=== PATIENT | female | born 1935 | race Two or more races ===

== ENCOUNTER 2017-10-20 16:45 | Inpatient (IN) | payer MEDICARE ==
[2017-10-20] MEDS ORDERED: SODIUM CHLORIDE 0.9% 1,000 ML IV STA (18:26)
--- NOTE | 2017-10-20 18:32 | ED ---
General Adult HPI - General Chief complaint: Abdominal Pain Stated complaint: ABd pain Time Seen by Provider: 10/20/17 16:45 Source: patient, RN notes reviewed Mode of arrival: EMS Limitations: no limitations - History of Present Illness Initial comments: This is a 82-year-old female with a history of depression and COPD who was transferred from [facility] to [facility] due to constipation. She was found have a large amount of stool mostly in the rectal vault and lower colon. The initial thought was that she needed to be observed in the hospital due to the constipation. She did demonstrate evidence of dehydration also reactive leukocytosis. Imaging showed no acute findings other than the stool. Imaging showed moderate amount of stool within the rectum with mild perirectal inflammation seen the patient findings were related to a possible stercoral colitis. Patient feeling did have a large bowel movement. Patient herself is a poor historian. She still complains of slight amount of abdominal discomfort - Related Data Home Medications Medication Instructions Recorded Confirmed Acetaminophen Tab [Tylenol Tab] 500 mg PO Q6HR PRN 10/20/17 10/20/17 Allopurinol [Zyloprim] 300 mg PO BID 10/20/17 10/20/17 Citalopram Hydrobromide [CeleXA] 20 mg PO DIRECTED 10/20/17 10/20/17 Diclofenac Sodium [Diclofenac 100 mg PO DAILY@1700 10/20/17 10/20/17 Sodium ER] Ferrous Sulfate [Iron] 325 mg PO BID@0900,1700 10/20/17 10/20/17 Isosorbide Mononitrate ER [Imdur] 30 mg PO DAILY@0900 10/20/17 10/20/17 Meclizine [Antivert] 50 mg PO TID 10/20/17 10/20/17 Nuedexta 20-10mg 1 tab PO DIRECTED 10/20/17 10/20/17 Rivaroxaban [Xarelto] 20 mg PO HS@1700 10/20/17 10/20/17 Sucralfate [Carafate] 1 gm PO BID@0900,1700 10/20/17 10/20/17 traMADol HCL [Ultram] 50 mg PO TID PRN 10/20/17 10/20/17 Allergies Allergy/AdvReac Type Severity Reaction Status Date / Time codeine Allergy Rash/Hives Verified 10/20/17 17:37 Sulfa (Sulfonamide Allergy Rash/Hives Verified 10/20/17 17:37 Antibiotics) cholestyramine AdvReac Confusion Verified 10/20/17 19:55 [From Questran] dicyclomine [From Bentyl] AdvReac Diarrhea Verified 10/20/17 19:55 sucrose [From Questran] AdvReac Confusion Verified 10/20/17 19:55 steroids Allergy Rash/Hives Uncoded 10/20/17 19:56 Review of Systems ROS Statement: Those systems with pertinent positive or pertinent negative responses have been documented in the HPI. ROS Other: All systems not noted in ROS Statement are negative. Past Medical History Past Medical History: COPD, CVA/TIA, Hyperlipidemia History of Any Multi-Drug Resistant Organisms: None Reported Past Surgical History: Ablation Additional Past Surgical History / Comment(s): cardiac ablation Past Psychological History: No Psychological Hx Reported Smoking Status: Never smoker Past Alcohol Use History: None Reported Past Drug Use History: None Reported General Exam - General Exam Comments Initial Comments: This a well-developed sec appearing female Limitations: no limitations General appearance: alert Head exam: Present: atraumatic, normocephalic, normal inspection Eye exam: Present: normal appearance, PERRL, EOMI. Absent: scleral icterus, conjunctival injection, periorbital swelling ENT exam: Present: mucous membranes dry Neck exam: Present: normal inspection. Absent: tenderness, meningismus, lymphadenopathy Respiratory exam: Present: normal lung sounds bilaterally. Absent: respiratory distress, wheezes, rales, rhonchi, stridor Cardiovascular Exam: Present: regular rate, normal rhythm, normal heart sounds. Absent: systolic murmur, diastolic murmur, rubs, gallop, clicks GI/Abdominal exam: Present: soft, tenderness (I'll tenderness palpation no guarding no rebound masses or bruits), normal bowel sounds. Absent: distended, guarding, rebound, rigid Rectal exam: Present: deferred Extremities exam: Present: normal inspection, full ROM, normal capillary refill. Absent: tenderness, pedal edema, joint swelling, calf tenderness Back exam: Present: normal inspection Neurological exam: Present: alert, oriented X3, CN II-XII intact Psychiatric exam: Present: normal mood, flat affect Skin exam: Present: warm, dry, intact, normal color. Absent: rash Course Vital Signs 10/20/17 16:50 Temperature 98.2 F Pulse Rate 95 Respiratory 16 Rate Blood Pressure 108/60 O2 Sat by Pulse 99 Oximetry - Reevaluation(s) Reevaluation #1: 10/20/17 18:32 I did review the materials presented from [facility]. The patient's family doctor is from this facility additionally there are insurance issues with admission at [facility] which are noted issue here. Reevaluation #2: 10/20/17 20:07 Patient did have another bowel movement she still has lower abdominal pain. I discussed the findings with patient family as well as with Dr. Lopez. Patient will be admitted for continued IV hydration liquids and surgical consultation Disposition Clinical Impression: Abdominal pain, Constipation, Colitis, Dehydration, Leukocytosis Disposition: ADMITTED IP TO THIS HOSP Condition: Stable Referrals: Ruel Campa DO [Primary Care Provider] - 1-2 days
[2017-10-20] MEDS ORDERED: NALOXONE 0.4 MG/ML 1 ML VIAL IV PRN (20:11)
[2017-10-20] MEDS ORDERED: traMADol 50 MG TAB PO PRN (20:16)
[2017-10-20] MEDS ORDERED: ALPRAZolam 0.25 MG TAB PO PRN (20:16)
[2017-10-20] MEDS ORDERED: amLODIPine 5 MG TAB PO PRN (20:16)
[2017-10-20] MEDS: SODIUM CHLORIDE 0.9% 1,000 ML IV SCH (21:02)
[2017-10-20 23:08] VITALS: BMI 28.2
[2017-10-20] MEDS: MECLIZINE 25 MG TAB PO SCH (23:23)
[2017-10-20] MEDS: ALLOPURINOL 300 MG TAB PO SCH (23:23)
--- NOTE | 2017-10-21 07:13 | XR ---
EXAMINATION TYPE: XR abdomen 2V DATE OF EXAM: 10/21/2017 6:46 AM CLINICAL HISTORY: Abdominal pain. Progress exam. TECHNIQUE: Upright and supine images of the abdomen were obtained. COMPARISON: Outside CT dated 10/20/2017 FINDINGS: Gaseous colonic distention is upper limits of normal measuring up to 6.0 cm. Appropriate ramos ustral markings are seen. Air is noted within the descending colon. Rectum is obscured by collected c ontrast within the urinary bladder from the recent CT. No differential air-fluid levels within dilate d bowel in the upright image. No evidence of pneumoperitoneum. Extensive degenerative changes of the visualized thoracolumbar spine and femoral acetabular joints are present. The lung bases are without focal consolidation. IMPRESSION: Gaseous colonic distention is upper limits of normal suggesting colonic ileus. Rectum is obscured by intravenous contrast within the urinary bladder.
[2017-10-21 08:29] LABS: Anisocytosis Slight; Basophils % (A) 0 %; Eosinophils # (A) 0.1 k/uL (0-0.7); Eosinophils % (A) 1 %; HCT 32.1 % (34.0-46.0); HGB 9.5 gm/dL (11.4-16.0); Hypochromasia Marked; Lymphocytes # (A) 1.4 k/uL (1.0-4.8); Lymphocytes % (A) 14 %; MCH 22.7 pg (25.0-35.0); MCHC 29.5 g/dL (31.0-37.0); Mean Platelet Volume 6.7; Microcytosis Slight; Monocytes # (A) 0.5 k/uL (0-1.0); Monocytes % (A) 5 %; Neutrophils # (A) 7.6 k/uL (1.3-7.7); Neutrophils % (A) 78 %; Platelet Count 682 k/uL (150-450); RBC 4.18 m/uL (3.80-5.40); WBC 9.7 k/uL (3.8-10.6)
[2017-10-21] MEDS: IPRATROPIUM 0.5 MG/2.5 ML NEBU INHALATION SCH ×4 (08:30→19:42)
[2017-10-21] MEDS ORDERED: ALPRAZolam 0.5 MG TAB PO SCH (09:00)
[2017-10-21] MEDS ORDERED: NEUDEXTA PO SCH (09:00)
[2017-10-21] MEDS ORDERED: PANTOPRAZOLE 40 MG TABLET PO SCH (09:00)
--- NOTE | 2017-10-21 10:13 | P.GSCN ---
History of Present Illness Consult date: 10/21/17 Reason for Consult: Abdominal pain History of present illness: 82-year-old female presented on October 20 as a transfer from [facility] were patient was being evaluated for abdominal pain constipation. Given the above clinical presentation a surgical eval has been requested. Patient apparently has a history of depression was transferred initially from [facility] to [facility] Patient is a poor historian difficult to adequately get health history from patient health history has been obtained from reviewing medical records from [facility] patient's transfer according to the case management manager was for insurance issues apparently her insurance does not cover being a patient at [facility] necessitating a transfer to [facility]. Questioning patient about past surgical history patient states she doesn't have any past surgical history with prompting and reorienting patient states she's had an appendectomy, cholecystectomy, back surgery hysterectomy. Patient does have a well-healed surgical scar right lower quadrant. When questioning patient is to the events patient is stating I don't know why I am here is oriented to self only "I'm here for the acting lessons" patient was admitted at [facility] psychiatric unit for dementia with behavior disturbance Currently patient is denying any abdominal pain no nausea no vomiting. A CAT scan obtained of the abdomen and pelvis with contrast on the at [facility] in summary did report indicated that there was a moderate amount of stool noted within the rectum with mild perirectal inflammatory changes findings may relate to colitis. No evidence of a bowel obstruction. Moderate size hiatal hernia. And mild apparent wall thickening on the anterior wall of the bladder. The abdominal x-ray obtained this morning reviewing the report gaseous colon distention the upper limits of normal suggesting colonic ileus rectum is obscured by IV contrast within the urinary bladder. From a recent IV contrast given the day before Nursing indicates the patient has been incontinent of urine and has had 3 stools incontinently Review of Systems Not able to adequately obtain no recall Past Medical History Past Medical History: Atrial Fibrillation, Heart Failure, COPD, CVA/TIA, Dementia, Hyperlipidemia Additional Past Medical History / Comment(s): iron deficiency anemia; arthritis ; ibs; artherosclerotic heart disease History of Any Multi-Drug Resistant Organisms: None Reported Past Surgical History: Ablation, Appendectomy, Cholecystectomy, Hysterectomy, Tonsillectomy Additional Past Surgical History / Comment(s): cardiac ablation Past Anesthesia/Blood Transfusion Reactions: No Reported Reaction Past Psychological History: Depression Additional Psychological History / Comment(s): recent admission to [facility] for pyschosis Smoking Status: Never smoker Past Alcohol Use History: None Reported Past Drug Use History: None Reported - Past Family History Son(s) Family Medical History: No Reported History Additional Family Medical History / Comment(s): recently passed within last year Medications and Allergies Home Medications Medication Instructions Recorded Confirmed Type ALPRAZolam [Xanax] 0.25 - 0.5 mg PO HS PRN 10/20/17 10/20/17 History ALPRAZolam [Xanax] 0.5 mg PO DAILY 10/20/17 10/20/17 History Acetaminophen Tab [Tylenol Tab] 500 mg PO Q6HR PRN 10/20/17 10/20/17 History Allopurinol [Zyloprim] 300 mg PO BID 10/20/17 10/20/17 History Citalopram Hydrobromide [CeleXA] 20 mg PO DIRECTED 10/20/17 10/20/17 History Diclofenac Sodium [Diclofenac 100 mg PO DAILY@1700 10/20/17 10/20/17 History Sodium ER] Estradiol 0.05MG/24Hr Biwkptch 1 patch TRANSDERM Q84H 10/20/17 10/20/17 History [Vivelle-Dot 0.05 MG] Ferrous Sulfate [Iron] 325 mg PO BID@0900,1700 10/20/17 10/20/17 History Isosorbide Mononitrate ER [Imdur] 30 mg PO DAILY@0900 10/20/17 10/20/17 History Meclizine [Antivert] 50 mg PO TID 10/20/17 10/20/17 History Nuedexta 20-10mg 1 tab PO DIRECTED 10/20/17 10/20/17 History Omeprazole 20 mg PO BID@0900,1700 10/20/17 10/20/17 History Rivaroxaban [Xarelto] 20 mg PO HS@1700 10/20/17 10/20/17 History Sucralfate [Carafate] 1 gm PO BID@0900,1700 10/20/17 10/20/17 History Tiotropium 18 Mcg/Puff [Spiriva] 1 cap INHALATION RT-DAILY 10/20/17 10/20/17 History amLODIPine [Norvasc] 5 mg PO DAILY PRN 10/20/17 10/20/17 History traMADol HCL [Ultram] 50 mg PO TID PRN 10/20/17 10/20/17 History Allergies Allergy/AdvReac Type Severity Reaction Status Date / Time codeine Allergy Rash/Hives Verified 10/20/17 17:37 Sulfa (Sulfonamide Allergy Rash/Hives Verified 10/20/17 17:37 Antibiotics) cholestyramine AdvReac Confusion Verified 10/20/17 19:55 [From Questran] dicyclomine [From Bentyl] AdvReac Diarrhea Verified 10/20/17 19:55 sucrose [From Questran] AdvReac Confusion Verified 10/20/17 19:55 steroids Allergy Rash/Hives Uncoded 10/20/17 19:56 Surgical - Exam Vital Signs Temp Pulse Resp BP Pulse Ox 98.2 F 95 16 108/60 99 10/20/17 16:50 10/20/17 16:50 10/20/17 16:50 10/20/17 16:50 10/20/17 16:50 GENERAL APPEARANCE: The patient is alert, oriented oriented to self only no acute distress. Cooperative VITAL SIGNS: Reviewed HEENT: Head is normocephalic and atraumatic. Pupils are equal and reactive. The nares are patent. Oropharynx is clear without lesions. NECK: Supple without lymphadenopathy. Traches midline. HEART: S1, S2. Regular rate and rhythm. No murmur noted denying chest pain when questioning LUNGS: No crackles or wheezes are heard. Adequate air movement bilaterally on room air sats are 95% no cough noted ABDOMEN: Soft, nontender, nondistended with good bowel sounds. No peritoneal signs. No palpable organomegaly or masses. A well-healed surgical scar right lower quadrant no facial grimacing with palpitation to the abdominal wall nursing reports the patient has been incontinent 3 of stool currently a depends in place for urinary incontinence patient refused to have a rectal exam done EXTREMITIES: Right heel ulcerative area noted dressing in place. Radial pedal pulses are 2/4 bilaterally. No pedal edema moves all extremities appropriately Results - Labs 10/21/17 07:45 Abnormal Lab Results - Last 24 Hours (Table) 10/21/17 Range/Units 07:45 Hgb 9.5 L (11.4-16.0) gm/dL Hct 32.1 L (34.0-46.0) % MCV 77.0 L (80.0-100.0) fL MCH 22.7 L (25.0-35.0) pg MCHC 29.5 L (31.0-37.0) g/dL RDW 17.0 H (11.5-15.5) % Plt Count 682 H (150-450) k/uL Assessment and Plan Assessment: Impression Present on admission abdominal pain suspect due to constipation CAT scan abdomen pelvis with contrast on October 20 moderate amount of stool within the rectum no evidence of a bowel obstruction findings may relate to colitis Dementia with delusional behavior History of iron deficiency anemia Recent admission to [facility] for depression and delusional behavior History of paroxysmal atrial fibrillation status post cardiac ablation on Xarelto Computed tomography scan abdomen pelvis with contrast show no evidence of diverticulitis diverticulosis noted plan No evidence of an acute surgical abdomen at this time Bowel regime to be initiated send stool for C. diff if appropriate PT OT eval Home medication as appropriate IV fluid for hydration Will follow with you with further recommendations per clinical course Surgical consultation note dictated for dr chavez The above impression and plan of care have been discussed and directed by signing physician. Nithya Foley nurse practitioner acting as scribe for signing physician.
[2017-10-21] MEDS: ESTRADIOL 0.05 MG TRANSDERM SCH (10:17)
[2017-10-21] MEDS: FERROUS SULFATE 325 MG TAB PO SCH ×2 (10:29→18:04)
[2017-10-21] MEDS: ISOSORBIDE MONONITRATE ER 30 MG TAB.ER.24H PO SCH (10:29)
[2017-10-21] MEDS: ALLOPURINOL 300 MG TAB PO SCH ×2 (10:29→20:08)
[2017-10-21] MEDS: MECLIZINE 25 MG TAB PO SCH ×2 (10:29→18:42)
[2017-10-21] MEDS: CITALOPRAM HYDROBROMIDE 20 MG TAB PO SCH (10:29)
[2017-10-21] MEDS: PANTOPRAZOLE 40 MG/10 ML VIAL IV SCH (10:30)
[2017-10-21] MEDS: SUCRALFATE 1 GM TAB PO SCH ×2 (10:30→18:04)
[2017-10-21] MEDS: SODIUM CHLORIDE 0.9% 1,000 ML IV SCH ×2 (10:49→20:09)
--- NOTE | 2017-10-21 12:33 | CT ---
EXAMINATION TYPE: CT brain wo con DATE OF EXAM: 10/21/2017 COMPARISON: NONE HISTORY: Patient poor historian, altered mental status CT DLP: 1054.2 mGycm Automated exposure control for dose reduction was used. Helical acquisition through the brain. FINDINGS: Cerebral vascular calcifications are present. Cortical atrophy is likely age-related. No hydrocephalu s or hemorrhage evident. Periventricular white matter shows patchy low attenuation. Calvarium is inta ct. Paranasal sinuses and mastoid air cells are well-aerated. IMPRESSION: NO ACUTE BRAIN ABNORMALITY. AGE-RELATED ATROPHY AND PROBABLE CHRONIC SMALL VESSEL ISCHEMIA.
[2017-10-21] MEDS: NA PHOS,M-B/NA PHOS,DI-BA 133 ML ENEMA RECTAL ONE ×2 (13:21→18:04)
[2017-10-21] MEDS ORDERED: ETODOLAC 400 MG TAB PO SCH (17:00)
--- NOTE | 2017-10-21 17:05 | P.HPIM ---
History of Present Illness H&P Date: 10/21/17 Chief Complaint: change in mental status, diarrhea 82 years old female with past medical history of atrial fibrillation, heart failure unknown, COPD, history of stroke, dementia, hyperlipidemia, iron deficiency anemia resents in yesterday after the patient was transferred from [facility] where patient was evaluated for abdominal pain and constipation. According to the daughter patient was doing well and was oriented 3 functionally very active 5 weeks ago when she had multiple episodes of diarrhea and was started on Questran. Patient developed acute psychosis from Questran and was transferred to [facility] for acute psychosis. She was started on medication including neudexta, and citalopram. 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 Daughter on the other hand states that patient does not have any dementia or owning prior to this admission. She started having loose stools at [facility] and was transferred to [facility] but due to insurance issues was transferred to [facility]. Computed tomography scan obtained at [facility] did report moderate amount of stool noted in the rectum with perirectal inflammatory changes related to colitis but no sign of bowel obstruction. Abdominal x-ray done this morning suggested colonic ileus. Patient received 3 enema as in the ER with 3 stools. Patient is intermittently found to be confused. CT head ordered and was negative. She is moving all her extremities unlikely to be stroke. Patient is very weak according to the daughter is unable to come out of her bed but has. Need PT and OT evaluation while patient is here. CBC suggestive of hemoglobin 9.7, platelet 682 with MCV 77. No CMP ordered. Review of Systems ROS unobtainable: due to mental status Past Medical History Past Medical History: Atrial Fibrillation, Heart Failure, COPD, CVA/TIA, Dementia, Hyperlipidemia Additional Past Medical History / Comment(s): iron deficiency anemia; arthritis ; ibs; artherosclerotic heart disease History of Any Multi-Drug Resistant Organisms: None Reported Past Surgical History: Ablation, Appendectomy, Cholecystectomy, Hysterectomy, Tonsillectomy Additional Past Surgical History / Comment(s): cardiac ablation Past Anesthesia/Blood Transfusion Reactions: No Reported Reaction Past Psychological History: Depression Additional Psychological History / Comment(s): recent admission to [facility] for pyschosis Smoking Status: Never smoker Past Alcohol Use History: None Reported Past Drug Use History: None Reported - Past Family History Son(s) Family Medical History: No Reported History Additional Family Medical History / Comment(s): recently passed within last year Medications and Allergies Home Medications Medication Instructions Recorded Confirmed Type ALPRAZolam [Xanax] 0.25 - 0.5 mg PO HS PRN 10/20/17 10/20/17 History ALPRAZolam [Xanax] 0.5 mg PO DAILY 10/20/17 10/20/17 History Acetaminophen Tab [Tylenol Tab] 500 mg PO Q6HR PRN 10/20/17 10/20/17 History Allopurinol [Zyloprim] 300 mg PO BID 10/20/17 10/20/17 History Citalopram Hydrobromide [CeleXA] 20 mg PO DIRECTED 10/20/17 10/20/17 History Diclofenac Sodium [Diclofenac 100 mg PO DAILY@1700 10/20/17 10/20/17 History Sodium ER] Estradiol 0.05MG/24Hr Biwkptch 1 patch TRANSDERM Q84H 10/20/17 10/20/17 History [Vivelle-Dot 0.05 MG] Ferrous Sulfate [Iron] 325 mg PO BID@0900,1700 10/20/17 10/20/17 History Isosorbide Mononitrate ER [Imdur] 30 mg PO DAILY@0900 10/20/17 10/20/17 History Meclizine [Antivert] 50 mg PO TID 10/20/17 10/20/17 History Nuedexta 20-10mg 1 tab PO DIRECTED 10/20/17 10/20/17 History Omeprazole 20 mg PO BID@0900,1700 10/20/17 10/20/17 History Rivaroxaban [Xarelto] 20 mg PO HS@1700 10/20/17 10/20/17 History Sucralfate [Carafate] 1 gm PO BID@0900,1700 10/20/17 10/20/17 History Tiotropium 18 Mcg/Puff [Spiriva] 1 cap INHALATION RT-DAILY 10/20/17 10/20/17 History amLODIPine [Norvasc] 5 mg PO DAILY PRN 10/20/17 10/20/17 History traMADol HCL [Ultram] 50 mg PO TID PRN 10/20/17 10/20/17 History Allergies Allergy/AdvReac Type Severity Reaction Status Date / Time codeine Allergy Rash/Hives Verified 10/20/17 17:37 Sulfa (Sulfonamide Allergy Rash/Hives Verified 10/20/17 17:37 Antibiotics) cholestyramine AdvReac Confusion Verified 10/20/17 19:55 [From Questran] dicyclomine [From Bentyl] AdvReac Diarrhea Verified 10/20/17 19:55 sucrose [From Questran] AdvReac Confusion Verified 10/20/17 19:55 steroids Allergy Rash/Hives Uncoded 10/20/17 19:56 Physical Exam Vitals: Vital Signs Temp Pulse Pulse Resp BP BP Pulse Ox 10/21/17 08:39 69 10/21/17 08:30 69 16 10/21/17 07:00 98.1 F 78 18 126/58 95 10/20/17 22:32 98 F 86 16 103/55 92 L 10/20/17 21:03 97.7 F 78 16 120/68 96 10/20/17 16:50 98.2 F 95 16 108/60 99 Intake and Output 10/21/17 10/21/17 10/21/17 06:59 14:59 22:59 Intake Total 640 640 Balance 640 640 Intake: IV 640 640 Sodium Chloride 0.9% 1, 640 640 000 ml @ 80 mls/hr IV . [id number] [facility] Rx#:[id number] Other: Voiding Method Diaper Diaper Incontinent Incontinent # Voids 1 # Bowel Movements 3 1 Weight 61.235 kg - Constitutional General appearance: cooperative, no acute distress - EENT Eyes: EOMI, PERRLA, no photophobia, no ptosis ENT: hearing grossly normal, normal oropharynx, no pharyngeal erythema, no tonsillar exudates - Neck Neck: no lymphadenopathy, normal ROM Carotids: bilateral: upstroke normal - Respiratory Respiratory: bilateral: CTA, negative: diminished, dullness, rales, rhonchi, wheezing - Cardiovascular Rhythm: regular Heart sounds: normal: S1, S2 Abnormal Heart Sounds: no systolic murmur, no diastolic murmur ankle Peripheral Edema: absent: None dorsalis pedis Peripheral Pulses: bilateral: Normal - Gastrointestinal General gastrointestinal: no distended, normal bowel sounds, no organomegaly, soft, no tenderness - Integumentary Integumentary: no calor, no cyanotic, ulcer (right heel ulcer around 5 cm in size) - Musculoskeletal Musculoskeletal: generalized weakness - Psychiatric Alert and oriented 1 Psychiatric: A&O x's 3, no appropriate affect, no intact judgment & insight Results CBC & Chem 7: 10/21/17 07:45 Labs: Abnormal Lab Results - Last 24 Hours (Table) 10/21/17 Range/Units 07:45 Hgb 9.5 L (11.4-16.0) gm/dL Hct 32.1 L (34.0-46.0) % MCV 77.0 L (80.0-100.0) fL MCH 22.7 L (25.0-35.0) pg MCHC 29.5 L (31.0-37.0) g/dL RDW 17.0 H (11.5-15.5) % Plt Count 682 H (150-450) k/uL Thrombosis Risk Factor Assmnt - DVT/VTE Prophylaxis DVT/VTE Prophylaxis: Pharmacologic Prophylaxis ordered - Choose All That Apply Any of the Below Risk Factors Present?: Yes Each Factor Represents 1 point: Abnormal pulmonary function (COPD) Other Risk Factors: Yes Each Risk Factor Represents 2 Points: Patient confined to bed Each Risk Factor Represents 3 Points: Age 75 years or older Thrombosis Risk Factor Assessment Total Risk Factor Score: 6 Thrombosis Risk Factor Assessment Level: High Risk Assessment and Plan Plan: #1 acute abdominal pain likely secondary to constipation with colonic ileus. One dose of an enema given today. Diarrhea could be related to impaction. Repeat abdominal x-ray tomorrow morning. #2 change in mental status with possible underlying dementia/psychosis related to medication. Family is reluctant to believe that patient has underlying dementia as she was doing well he weeks ago with no previous symptoms. Continue citalopram, we will hold neudexta due to mental changes, we will Consult psychiatry for questionable history of psychosis and medication adjustment. #3 history of iron deficiency anemia continue ferrous sulfate 325 twice a day #4 history of paroxysmal atrial fibrillation continue Xarelto #5 history of COPD continue DuoNeb for shortness of breath as needed #6 DVT prophylaxis on Xarelto #7 history of gout continue allopurinol 300 twice a day #8 chronic pain hold tramadol for constipation #9 history of hypertension continue Norvasc and Imdur or #10 GI prophylaxis continue sucralfate #11 disposition patient need 1-2 inpatient days and possible placement to rehab. PTOT consult
[2017-10-21] MEDS: RIVAROXABAN 20 MG TAB PO SCH (18:04)
[2017-10-21] MEDS: DONEPEZIL 5 MG TAB PO SCH (20:08)
--- NOTE | 2017-10-21 21:48 | XR ---
EXAMINATION TYPE: XR abdomen 2V DATE OF EXAM: 10/21/2017 COMPARISON: NONE HISTORY: Abdominal pain with constipation TECHNIQUE: 2 supine views FINDINGS: Radiographic contrast opacifies the urinary bladder. The bowel gas pattern is unremarkable. No acute skeletal findings are evident. Soft tissues unremarkable as seen. IMPRESSION: No definite acute radiographic findings.
[2017-10-22] MEDS: IPRATROPIUM 0.5 MG/2.5 ML NEBU INHALATION SCH ×4 (07:11→20:25)
[2017-10-22 08:35] LABS: ALT 31 U/L (9-52); AST 24 U/L (14-36); Albumin 1.9 g/dL (3.5-5.0); Alkaline Phosphatase 120 U/L (38-126); Anion Gap 9 mmol/L; Blood Urea Nitrogen 12 mg/dL (7-17); Calcium 7.7 mg/dL (8.4-10.2); Carbon Dioxide 25 mmol/L (22-30); Chloride 105 mmol/L (98-107); Glucose 70 mg/dL (74-99); Sodium 139 mmol/L (137-145); Total Bilirubin 0.2 mg/dL (0.2-1.3); Total Protein 4.4 g/dL (6.3-8.2)
[2017-10-22 08:44] LABS: Potassium 2.8 mmol/L (3.5-5.1)
--- NOTE | 2017-10-22 08:44 | CONS ---
CONSULTATION DATE OF CONSULTATION: 10/21/2017. CHIEF COMPLAINT: Altered mental status. HISTORY OF PRESENT ILLNESS: The patient is a pleasant 82-year-old, female who is being evaluated today on 10/21/2017 by the neurology service per the request of Dr. Lopez for altered mental status. The patient was brought into [facility] yesterday by her family who noticed that she had been more confused lately. According to the chart, she was recently started on a medication for constipation and she had been confused since then. A CT scan of the brain was done, which showed no acute findings. There was generalized atrophy and small-vessel ischemic changes. Her CBC showed anemia with a hemoglobin of 9.5 and hematocrit of 32%. She did have mild thrombocytosis at 682,000. At the time of my evaluation, the patient is quite awake and alert. She is oriented. She denies any headache, dizziness, or any lateralizing numbness or weakness. She continues to complain of some abdominal pain, but she states that this is significantly improved. She was given an enema in the emergency room and did have a bowel movement. PAST MEDICAL HISTORY: Atrial fibrillation, heart failure, chronic obstructive pulmonary disease, transient ischemic attack, dyslipidemia, chronic anemia, iron deficiency, arthritis, irritable bowel syndrome, history of cardiac ablation, appendectomy, cholecystectomy, hysterectomy, tonsillectomy. She also has history of depression. SOCIAL HISTORY: She denies any tobacco, alcohol or drug use. FAMILY HISTORY: Noncontributory. HOME MEDICATIONS: Reviewed in the chart. ALLERGIES: SULFA DRUGS, CHOLESTYRAMINE, DICYCLOMINE, SUCROSE, STEROIDS. REVIEW OF SYSTEM: As mentioned above and otherwise negative. PHYSICAL EXAM: Vital signs show a temperature of 97.5, pulse 70, respiration 18, blood pressure 109/62. GENERAL APPEARANCE: The patient is a well-developed elderly female who appears to be in no acute distress. HEENT: Normocephalic, atraumatic, no facial asymmetry is seen. Neck is supple with no masses felt. CARDIOVASCULAR: Regular rate and rhythm. ABDOMEN: Mild tenderness to palpation is felt. No distention is seen. Extremities showed no edema or clubbing. NEUROLOGICAL EXAM: The patient is alert, aware and oriented x3. Speech and language are normal. Strength is full in all 4 extremities. Sensory exam was normal to light touch in all 4 extremities. No facial asymmetry is seen on cranial nerve testing. IMPRESSION: 1. Altered mental status. 2. Likely metabolic encephalopathy. 3. Recent diarrhea with possible dehydration. 4. Small vessel ischemic disease. 5. Chronic anemia. 6. Atrial fibrillation. RECOMMENDATION: The patient's altered mental status appears to have resolved. She is quite oriented x3 at the time of my evaluation. Her altered mental status may have been due to dehydration given her recent diarrhea, and also may have been due to medication side effects. I will order a urinalysis and a comprehensive metabolic profile. An EEG has also been ordered. Continue the rest of your current workup and management. I will continue to follow with you. Further recommendations to follow. Thank you for allowing me to participate in the care of your patient. If you have any questions, please feel free to contact me. EDMAR / JOSE: [id number] /
[2017-10-22] MEDS: SODIUM CHLORIDE 0.9% 1,000 ML IV SCH ×2 (09:33→20:50)
[2017-10-22] MEDS: SUCRALFATE 1 GM TAB PO SCH ×2 (09:34→15:50)
[2017-10-22] MEDS: PANTOPRAZOLE 40 MG/10 ML VIAL IV SCH (09:34)
[2017-10-22] MEDS: FERROUS SULFATE 325 MG TAB PO SCH ×2 (09:34→15:50)
[2017-10-22] MEDS: CITALOPRAM HYDROBROMIDE 20 MG TAB PO SCH (09:34)
[2017-10-22] MEDS: ALLOPURINOL 300 MG TAB PO SCH ×2 (09:34→20:50)
[2017-10-22] MEDS: ISOSORBIDE MONONITRATE ER 30 MG TAB.ER.24H PO SCH (09:34)
[2017-10-22] MEDS: POTASSIUM CHLORIDE ER 20 MEQ TAB.ER PO SCH ×4 (11:20→18:24)
--- NOTE | 2017-10-22 14:35 | P.PN ---
Progress Note - Text Progress Note Date: 10/22/17 Attempted to see patient on 3 occasions out of room for testing. Will return tomorrow to complete psychiatry consult.
--- NOTE | 2017-10-22 14:43 | P.PN ---
Subjective Progress Note Date: 10/22/17 82 years old female with past medical history of atrial fibrillation, heart failure unknown, COPD, history of stroke, dementia, hyperlipidemia, iron deficiency anemia resents in yesterday after the patient was transferred from [facility] where patient was evaluated for abdominal pain and constipation. According to the daughter patient was doing well and was oriented 3 functionally very active 5 weeks ago when she had multiple episodes of diarrhea and was started on Questran. Patient developed acute psychosis from [facility] and was transferred to [facility] for acute psychosis. She was started on medication including neudexta, and citalopram. 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 Daughter on the other hand states that patient does not have any dementia or ing prior to this admission. She started having loose stools at [facility] and was transferred to [facility] but due to insurance issues was transferred to [facility]. Computed tomography scan obtained at [facility] did report moderate amount of stool noted in the rectum with perirectal inflammatory changes related to colitis but no sign of bowel obstruction. Abdominal x-ray done this morning suggested colonic ileus . Patient received 3 enema as in the ER with 3 stools. Patient is intermittently found to be confused. CT head ordered and was negative. She is moving all her extremities unlikely to be stroke. Patient is very weak according to the daughter is unable to come out of her bed but has. Need PT and OT evaluation while patient is here. CBC suggestive of hemoglobin 9.7, platelet 682 with MCV 77. No CMP ordered. 10/22 Patient is much oriented today. Patient had good bowel movement after she had an enema. Neurology evaluated the patient thought confusion might be related to her dehydration and the partial obstruction. Aricept initiated. Psychiatry recommendation pending. Labs drawn today suggestive of severe hypokalemia of 2.8. Glucose 70, calcium 7.7. Patient's albumin 1.9 nutrition consult placed for evaluation of malnutrition. Iron studies ordered for anemia and thrombocytopenia Objective - Vital Signs Vital signs: Vital Signs Temp 98.3 F 10/22/17 07:00 Pulse 72 10/22/17 11:24 Resp 18 10/22/17 07:00 BP 127/58 10/22/17 07:00 Pulse Ox 97 10/22/17 07:00 Intake & Output 10/21/17 10/22/17 10/22/17 18:59 06:59 18:59 Intake Total 640 1260 Balance 640 1260 Weight 61.235 kg 61.235 kg Intake: IV 640 960 Sodium Chloride 0.9% 1, 640 960 000 ml @ 80 mls/hr IV . [id number] [facility] Rx#:[id number] Oral 300 Other: Voiding Method Diaper Diaper Incontinent Incontinent # Bowel Movements 1 - Exam - Constitutional General appearance: cooperative, no acute distress appears to be much more conscious than yesterday and answering questions appropriately - EENT Eyes: EOMI, PERRLA, no photophobia, no ptosis ENT: hearing grossly normal, normal oropharynx, no pharyngeal erythema, no tonsillar exudates - Neck Neck: no lymphadenopathy, normal ROM Carotids: bilateral: upstroke normal - Respiratory Respiratory: bilateral: CTA, negative: diminished, dullness, rales, rhonchi, wheezing - Cardiovascular Rhythm: regular Heart sounds: normal: S1, S2 Abnormal Heart Sounds: no systolic murmur, no diastolic murmur ankle Peripheral Edema: absent: None dorsalis pedis Peripheral Pulses: bilateral: Normal - Gastrointestinal General gastrointestinal: no distended, normal bowel sounds, no organomegaly, soft, no tenderness - Integumentary Integumentary: no calor, no cyanotic, ulcer (right heel ulcer around 5 cm in size) - Musculoskeletal Musculoskeletal: generalized weakness - Psychiatric Altered mental status improved Psychiatric: no appropriate affect, no intact judgment & insight - Labs CBC & Chem 7: 10/21/17 07:45 10/22/17 07:06 Labs: Abnormal Lab Results - Last 24 Hours (Table) 10/22/17 Range/Units 07:06 Potassium 2.8 L* (3.5-5.1) mmol/L Glucose 70 L (74-99) mg/dL Calcium 7.7 L (8.4-10.2) mg/dL Total Protein 4.4 L (6.3-8.2) g/dL Albumin 1.9 L (3.5-5.0) g/dL Assessment and Plan Plan: #1 acute abdominal pain likely secondary to constipation with colonic ileus. Good output with enema . Diarrhea could be related to impaction. Repeat abdominal x-ray tomorrow morning. #2 change in mental status with possible underlying dementia/psychosis related to medication. Continue citalopram, we will hold neudexta due to mental changes, we will Consult psychiatry for questionable history of psychosis and medication adjustment. #3 history of iron deficiency anemia continue ferrous sulfate 325 twice a day. Iron studies ordered #4 history of paroxysmal atrial fibrillation continue Xarelto #5 history of COPD continue DuoNeb for shortness of breath as needed #6 DVT prophylaxis on Xarelto #7 history of gout continue allopurinol 300 twice a day #8 chronic pain hold tramadol for constipation #9 history of hypertension continue Norvasc and Imdur or #10 GI prophylaxis continue sucralfate #11 generalized debility PT OT recommended subacute rehab as patient is to go to walk by herself #12 thrombocytosis likely secondary to iron deficiency anemia #13 hypokalemia status post potassium 40 mEq every 2 hours #14 hypoalbuminemia secondary to protein energy malnutrition, moderate. Nutrition consult placed
--- NOTE | 2017-10-22 15:07 | P.PN ---
Subjective Progress Note Date: 10/22/17 A 82-year-old female seen and examined at bedside this morning patient reportedly had an enema given yesterday with adequate results. A abdominal x- ray has been ordered for the morning. Patient is pleasantly confused oriented to self only with reorienting can recall place has no recall of events is cooperative not making comments of delusional behavior denies any abdominal pain when questioning Objective - Vital Signs Vital signs: Vital Signs Temp 98.3 F 10/22/17 07:00 Pulse 72 10/22/17 11:24 Resp 18 10/22/17 07:00 BP 127/58 10/22/17 07:00 Pulse Ox 97 10/22/17 07:00 Intake & Output 10/21/17 10/22/17 10/22/17 18:59 06:59 18:59 Intake Total 640 1260 Balance 640 1260 Weight 61.235 kg 61.235 kg Intake: IV 640 960 Sodium Chloride 0.9% 1, 640 960 000 ml @ 80 mls/hr IV . [id number] [facility] Rx#:[id number] Oral 300 Other: Voiding Method Diaper Diaper Incontinent Incontinent # Bowel Movements 1 - Exam Exam Abdomen soft no facial grimacing with palpitation to the abdominal wall no nausea no vomiting incontinent stool and urine bowel tones present - Labs CBC & Chem 7: 10/21/17 07:45 10/22/17 07:06 Labs: Abnormal Lab Results - Last 24 Hours (Table) 10/22/17 Range/Units 07:06 Potassium 2.8 L* (3.5-5.1) mmol/L Glucose 70 L (74-99) mg/dL Calcium 7.7 L (8.4-10.2) mg/dL Total Protein 4.4 L (6.3-8.2) g/dL Albumin 1.9 L (3.5-5.0) g/dL Assessment and Plan Assessment: Impression Present on admission abdominal pain suspect due to constipation CAT scan abdomen pelvis with contrast on October 20 moderate amount of stool within the rectum no evidence of a bowel obstruction findings may relate to colitis Dementia with delusional behavior History of iron deficiency anemia Recent admission to [facility] for depression and delusional behavior History of paroxysmal atrial fibrillation status post cardiac ablation on Xarelto Computed tomography scan abdomen pelvis with contrast show no evidence of diverticulitis diverticulosis noted plan Repeat an abdominal x-ray follow up on results No evidence of an acute surgical abdomen at this time Bowel regime to be initiated send stool for C. diff if appropriate PT OT eval Home medication as appropriate IV fluid for hydration Will follow with you with further recommendations per clinical course note dictated for dr chavez The above impression and plan of care have been discussed and directed by signing physician. Nithya Foley nurse practitioner acting as scribe for signing physician.
--- NOTE | 2017-10-22 15:48 | XR ---
2 view abdomen HISTORY: Abdominal pain and constipation 2 views of the abdomen on 3 images correlated to prior abdomen 10/21/[address] 10/20/2017 Lung bases are clear. There is no pneumoperitoneum. There are air-fluid levels without bowel distenti on. Retrocardiac density is compatible with hiatal hernia. Large amount of retained contrast is prese nt within the urinary bladder. There are vascular calcifications present. There is distention of the cecum. Gas-filled loops of small and large bowel are present. IMPRESSION: Difficult to exclude transverse colon mass. There may be partial obstruction versus ileus or enteritis. Follow-up is recommended.
[2017-10-22] MEDS: RIVAROXABAN 20 MG TAB PO SCH (15:50)
--- NOTE | 2017-10-22 17:20 | P.PN ---
Subjective Progress Note Date: 10/22/17 Principal diagnosis: Altered mental status Is a pleasant 82-year-old female continuing be evaluated by the neurology service for altered mental status. She was brought to [facility] emergency room after having been a little confused. She was found to be dehydrated having had some recent diarrhea. Her symptoms didn't resolve with hydration. She denied any lateralizing weakness or numbness. CT of the brain showed no acute intracranial abnormalities. There was some generalized atrophy and small vessel ischemic change. At the time of my exam she is quite drowsy from some Ativan that was given to her. She is receiving a breathing treatment. Objective - Vital Signs Vital signs: Vital Signs Temp 98.1 F 10/22/17 15:00 Pulse 63 10/22/17 15:00 Resp 18 10/22/17 15:00 BP 132/64 10/22/17 15:00 Pulse Ox 94 L 10/22/17 15:00 Intake & Output 10/21/17 10/22/17 10/22/17 18:59 06:59 18:59 Intake Total 640 1260 Balance 640 1260 Weight 61.235 kg 61.235 kg Intake: IV 640 960 Sodium Chloride 0.9% 1, 640 960 000 ml @ 80 mls/hr IV . [id number] [facility] Rx#:[id number] Oral 300 Other: Voiding Method Diaper Diaper Incontinent Incontinent # Voids 1 # Bowel Movements 1 1 - Constitutional General appearance: Present: cooperative, no acute distress - EENT Eyes: Present: EOMI, PERRLA. Absent: abnormal pupil, ptosis ENT: Present: hearing grossly normal - Neck Neck: Present: normal ROM. Absent: rigidity - Respiratory Respiratory: negative: prolonged expiration, prolonged inspiration - Cardiovascular Rhythm: irregularly irregular - Gastrointestinal General gastrointestinal: Absent: distended, tenderness - Neurologic Neurologic Comment(s): Patient is drowsy as stated above but easily awoken. She is oriented 3. Speech-language are normal. There is no facial asymmetry. Strength is full in all 4 extremities. There is no sensory deficit. - Labs CBC & Chem 7: 10/21/17 07:45 10/22/17 07:06 Labs: Abnormal Lab Results - Last 24 Hours (Table) 10/22/17 Range/Units 07:06 Potassium 2.8 L* (3.5-5.1) mmol/L Glucose 70 L (74-99) mg/dL Calcium 7.7 L (8.4-10.2) mg/dL Total Protein 4.4 L (6.3-8.2) g/dL Albumin 1.9 L (3.5-5.0) g/dL Assessment and Plan (1) Altered mental status Current Visit: Yes Status: Resolved Code(s): R41.82 - ALTERED MENTAL STATUS , UNSPECIFIED SNOMED Code(s): 469312670 (2) Metabolic encephalopathy Current Visit: Yes Status: Resolved Code(s): G93.41 - METABOLIC ENCEPHALOPATHY SNOMED Code(s): 80224186 (3) Small vessel disease, cerebrovascular Current Visit: Yes Status: Chronic Code(s): I67.9 - CEREBROVASCULAR DISEASE , UNSPECIFIED SNOMED Code(s): 160379891 (4) Atrial fibrillation Current Visit: Yes Status: Chronic Code(s): I48.91 - UNSPECIFIED ATRIAL FIBRILLATION SNOMED Code(s): 65628373 (5) Constipation Current Visit: Yes Status: Resolved Code(s): K59.00 - CONSTIPATION, UNSPECIFIED SNOMED Code(s): 63443152 (6) Dehydration Current Visit: Yes Status: Resolved Code(s): E86.0 - DEHYDRATION SNOMED Code(s): 64740700 Plan: A factors involved in her altered mental status are being treated. Although she is drowsy due to medication her symptoms of likely resolved. An EEG has been performed. Continue the rest your workup and management. Barring any unforeseen abnormalities on her EEG she would be cleared from a neurological standpoint. I have performed a history and physical on the above patient. I have reviewed the above note, and agree.
--- NOTE | 2017-10-22 18:56 | EEG ---
ELECTROENCEPHALOGRAM REPORT DATE OF SERVICE: 10/22/2017. REASON FOR TESTING: Altered mental status. DESCRIPTION OF THE PROCEDURE: This EEG was performed using a 21 channel digital electroencephalograph, following international 10-20 system. DESCRIPTION OF THE RECORDING: From the beginning of the tracing, with patient's eyes closed, the background rhythm was mostly consisting of 8 Hz alpha frequency in the posterior occipital leads. No obvious asymmetry is seen. Frequent lead artifacts and occasional muscle artifacts are seen. Photic stimulation was performed with a minimal driving response seen. No pathological waves were elicited. Hyperventilation was not performed. The patient remains awake throughout the tracing. No epileptiform discharges were seen. Her EKG lead showed an irregularly irregular rhythm with a normal rate. INTERPRETATION: This awake EEG can be considered within normal limits except her EKG lead showed an irregularly irregular rhythm with a normal rate. No epileptiform discharges were seen. The absence of epileptiform discharges does not rule out the diagnosis of epilepsy, therefore clinical correlation is recommended. MMFANNY / JOSE: [id number] /
[2017-10-22] MEDS: POLYETHYLENE GLYCOL 3350 17 GM POWD.PACK PO SCH (20:50)
[2017-10-22] MEDS: DOCUSATE 100 MG CAP PO SCH (20:50)
[2017-10-22] MEDS: DONEPEZIL 5 MG TAB PO SCH (20:50)
[2017-10-23] MEDS: ACETAMINOPHEN TAB 500 MG TAB PO PRN (01:37)
[2017-10-23 08:46] LABS: ALT 32 U/L (9-52); AST 26 U/L (14-36); Albumin 1.9 g/dL (3.5-5.0); Alkaline Phosphatase 116 U/L (38-126); Anion Gap 6 mmol/L; Blood Urea Nitrogen 12 mg/dL (7-17); Calcium 8.2 mg/dL (8.4-10.2); Carbon Dioxide 23 mmol/L (22-30); Chloride 114 mmol/L (98-107); Glucose 86 mg/dL (74-99); Potassium 4.2 mmol/L (3.5-5.1); Sodium 143 mmol/L (137-145); Total Bilirubin 0.1 mg/dL (0.2-1.3); Total Protein 4.5 g/dL (6.3-8.2)
[2017-10-23] MEDS: DOCUSATE 100 MG CAP PO SCH ×2 (09:12→20:57)
[2017-10-23] MEDS: PANTOPRAZOLE SODIUM 40 MG GRANULE PKT PO SCH (09:14)
[2017-10-23] MEDS: ALLOPURINOL 300 MG TAB PO SCH ×2 (09:16→20:57)
[2017-10-23] MEDS: CITALOPRAM HYDROBROMIDE 20 MG TAB PO SCH (09:17)
[2017-10-23] MEDS: FERROUS SULFATE 325 MG TAB PO SCH ×2 (09:17→17:44)
[2017-10-23] MEDS: ISOSORBIDE MONONITRATE ER 30 MG TAB.ER.24H PO SCH (09:18)
[2017-10-23] MEDS: SUCRALFATE 1 GM TAB PO SCH ×2 (09:18→17:44)
[2017-10-23] MEDS: IPRATROPIUM 0.5 MG/2.5 ML NEBU INHALATION SCH ×4 (09:35→20:36)
--- NOTE | 2017-10-23 12:12 | P.CN ---
Psychiatric Consult - . Consult date: 10/23/17 Consult:: 10/23/17 11:Identification: Patient is an 82-year-old female who was admitted for a bottle pain and constipation. Reason for Consult: Mental status changes History of Present Illness: Patient's chart was reviewed, patient was seen in her room no family members were present. Patient is an adequate historian and states that she developed diarrhea as an outpatient she thinks 6-8 weeks ago and states that she was using Imodium several packets a day without any relief. Patient states at that time she was placed on a medicine that she is unable to recall the name, from the history she was begun on Questran. Patient apparently then developed some confusion and was taken to [facility] where she was admitted and placed on Celexa and Nuedexta. Patient was transferred from [facility] her [facility]. Patient was then transferred to [facility] for evaluation of this. Patient is unable to state how long she was in [facility] but states to me that her daughters told her that while they visited her there she had accused them of not visiting, and the thought one of her daughters was . Patient states that she does not recall her time at that hospital nor does she recall having those thoughts or feeling confused. Patient states that prior to the diarrhea beginning she was living alone in her own home, was taking care of her own bills and was driving herself for lunch usually. She states that she had no assistance at home other than having someone come into cleaning once a month. She reports that she never got lost driving and was able to continue to cook for herself but states that she did not cook as she had in the past when her was alive. She states [place] [employer] [place]. Patient reports that she had no difficulties with her bill payment, does not recall ever being confused at home, denies seeing things, or having bizarre or bothersome thoughts. Patient states that once she began having the diarrhea she stopped driving, was staying at home and she was afraid to leave the home due to the diarrhea and states that she wasn't as physically active as she had been. Patient currently states that she is not feeling confused, denies any visual hallucinations and denies any paranoid ideation. Patient states that she is not feeling suicidal and states that she is trying to eat and has been sleeping. She states that she was up yesterday with assistance from nursing staff and states that she feels weak and not in the same physical states she was in prior to the diarrhea starting. Patient stated to me that she does not know why she is on Celexa and antidepressant, and patient was unable to tell me why she was on Nuedexta. Past Psychiatric History: Patient states at the age of 15 that she had a "breakdown" and she describes that she was fearful at that time and unable to report any other symptoms. She was taken to see a psychiatrist who she thinks placed her on an unknown medication and saw her for therapy. He recommended that she quit her job and go away for 6 months, patient states that she came to [place] to a cottage that her parents owned at that time and spent the time with her father. She states that she has never had a recurrence of any depressive episodes, has never seen a psychiatrist since that time and has never been on any psychotropic medication until just recently. Patient denies any prior suicide attempts. Patient has never been admitted to an inpatient psychiatric unit. Past Medical/Surgical History: Patient has a history of atrial fibrillation, COPD, heart failure, hyperlipidemia, gout, hypertension and is status post stroke. Patient is status post appendectomy, cholecystectomy, hysterectomy. Patient has also had a cardiac ablation. Family History: Denies any history of psychiatric disorders in the family, alcohol or drug disorders and no completed suicides Social History: Patient was born and raised in [place], her parents are both she had one brother. Patient completed high school and began working, doing typing and eventually teletype work. She states she worked until she was with her first child. Patient states she was for 55 years and her 3 years ago. She has 2 sons and 2 daughters ages 58, 56, 54 and 52. She states she has 5 grandchildren all boys. She is currently living alone in her own home and states she has assistance cleaning once a month. She states that she was driving prior to the diarrhea beginning, paying her own bills and was going out for lunch on a daily basis. Patient states that she continues to care for her ADLs and was even driving [place] in the [place] to a [place]. Patient states that since the diarrhea began she has not been feeling as well physically and has not been driving nor had the energy to do what she was doing in the past. Patient denies any history of abuse. Patient states that she is close to her children and had a good marriage. Substance Use History: Patient states that she quit using alcohol 30 years ago when the past she had 1-2 beers several times a week, she denies any current use and denies any current or prior drug use history. Patient states she quit smoking 30 years ago. Legal History: Patient has no legal history Mental status: Appearance/Attitude: Patient was sitting in bed in no acute distress made good eye contact and was cooperative Behavior: Patient does not exhibit any psychomotor agitation or retardation. Speech/Language: Patient's speech is spontaneous and of normal volume and rhythm and she is coherent. Thought Process: Patient was goal-directed there is no evidence of circumstantial or tangential thought and no loose associations or flight of ideas were elicited. Thought Content: Patient denies any current auditory or visual hallucinations no delusions or paranoid ideation were elicited. Patient is unable to tell me what occurred that precipitated her admission to [facility] but states that her daughter told her that when they visited her at the hospital she had accused them of not coming as well as thought one of her daughters were . Patient states that her difficulties began when she developed diarrhea several months ago was given Questran. Patient does not recall what symptoms she had at that time, she does not recall her stay at [facility]. Patient states that she is not feeling depressed, is not feeling confused and states that she is sleeping well and eating fairly well. Patient states that she feels weak physically and needed assistance yesterday when she was up out of bed. Suicidal/Homicidal Ideation: Patient denied any current suicidal or homicidal ideation Sensorium/Cognition: Patient is alert and oriented to person, situation, location and knew the month and year. Patient knew the president, did several subtractions and stated that math was to have her her strong suit. Formal cognitive testing was not done at this time. Mood/Affect: Patient's mood is pleasant and her affect is appropriate Insight/Judgment: patient's insight and judgment are fair Assessment: from the history it appears that the patient was placed on Questran and was then admitted to [facility], I am unclear where the diagnosis of psychosis came from, as the medication she was placed on at [facility] were an antidepressant and a medication for pseudobulbar affect. Patient was functioning well on her own prior to having diarrhea, she was caring for her ADLs, her finances and was driving and does not report any difficulty completing any of those tasks. Per the chart her daughter's have confirmed this as well. I suspect that the patient's response to Questran, having diarrhea for several weeks, using Imodium caused her to become delirious. I see no history of depression recently, patient denies feeling depressed currently or in the recent past. I see no evidence of pseudobulbar affect. Patient does not give a history of cognitive difficulties prior to her hospitalizations, her daughters stated in the record that she was not having any cognitive difficulties prior to her hospitalizations. Patient is currently not delirious and her symptoms appear to be resolving. Diagnosis: delirium, multifactorial Plan: patient does not have any evidence of psychosis, depression and her recent hospitalizations appeared to have been a result of a delirium. Patient' s delirium is clearing, patient is not expressing any depressive symptoms and I will discontinue her Celexa as I see no reason to continue this medication at this time. Patient also does not have a history of cognitive difficulties prior to these admissions and as she was recently delirious a diagnosis of cognitive disorder should not be made until the patient has been free of symptoms of a delirium for a minimum of 4 months. I would recommend discontinuing the Aricept as there has been no diagnosis made of a neurocognitive disorder of the Alzheimer type. I would not restart Nuedexta as there is no evidence of pseudobulbar affect. I will sign off the case and if there are any questions or concerns please don't hesitate. 10/23/17 11:44 10/23/17 11:45 10/23/17 11:54 10/23/17 12:11
[2017-10-23] MEDS: FUROSEMIDE 20 MG TAB PO SCH (12:18)
--- NOTE | 2017-10-23 13:42 | P.PN ---
Subjective Progress Note Date: 10/23/17 82-year-old female seen and examined sitting up in a chair this morning pleasant cooperative patient is adamantly denying any abdominal pain soft nondistended Nursing reports patient has had several loose stools. Tolerating a diet. No reports of nausea vomiting Oriented to person place and event. Abdominal x-ray done yesterday indicates difficult to exclude a transverse colon mass may be a partial obstruction versus an ileus or enteritis. We'll follow this up with a CAT scan of the abdomen and pelvis oral contrast only to be done today Objective - Vital Signs Vital signs: Vital Signs Temp 98.2 F 10/23/17 07:00 Pulse 68 10/23/17 10:50 Resp 16 10/23/17 10:50 BP 123/58 10/23/17 07:00 Pulse Ox 98 10/23/17 07:00 Intake & Output 10/22/17 10/23/17 10/23/17 18:59 06:59 18:59 Intake Total 1040 120 Balance 1040 120 Weight 61.235 kg Intake: IV 320 Sodium Chloride 0.9% 1, 320 000 ml @ 80 mls/hr IV . [id number] [facility] Rx#:[id number] Oral 720 120 Other: Voiding Method Diaper Diaper Diaper Incontinent Incontinent Incontinent # Voids 1 3 # Bowel Movements 1 1 - Exam Exam Abdomen soft nondistended nontender bowel tones present tolerating diet several frequent stools no facial grimacing with palpitation to the abdominal wall no nausea no vomiting incontinent stool and urine bowel tones present states abdominal discomfort gone - Labs CBC & Chem 7: 10/21/17 07:45 10/23/17 07:28 Labs: Abnormal Lab Results - Last 24 Hours (Table) 10/22/17 10/23/17 Range/Units 18:19 07:28 Potassium 3.4 L (3.5-5.1) mmol/L Chloride 114 H (98-107) mmol/L Calcium 8.2 L (8.4-10.2) mg/dL Total Bilirubin 0.1 L (0.2-1.3) mg/dL Total Protein 4.5 L (6.3-8.2) g/dL Albumin 1.9 L (3.5-5.0) g/dL Assessment and Plan Assessment: Impression Present on admission abdominal pain suspect due to constipation CAT scan abdomen pelvis with contrast on October 20 moderate amount of stool within the rectum no evidence of a bowel obstruction findings may relate to colitis Dementia with delusional behavior History of iron deficiency anemia Recent admission to [facility] for depression and delusional behavior History of paroxysmal atrial fibrillation status post cardiac ablation on Xarelto Computed tomography scan abdomen pelvis with contrast show no evidence of diverticulitis diverticulosis noted Repeat abdominal x-ray done on October 22 difficult to exclude a transverse colon mass may be partial obstruction versus ileus versus enteritis plan Computed tomography scan abdomen pelvis oral contrast only to follow up on the abnormal x-ray follow up on results further recommendations pending study No evidence of an acute surgical abdomen at this time Bowel regime to be initiated PT OT eval IV fluid for hydration Will follow with you with further recommendations per clinical course note dictated for dr chavez The above impression and plan of care have been discussed and directed by signing physician. Nithya Foley nurse practitioner acting as scribe for signing physician.
--- NOTE | 2017-10-23 14:34 | P.PN ---
Subjective Progress Note Date: 10/23/17 82 years old female with past medical history of atrial fibrillation, heart failure unknown, COPD, history of stroke, dementia, hyperlipidemia, iron deficiency anemia resents in yesterday after the patient was transferred from [facility] where patient was evaluated for abdominal pain and constipation. According to the daughter patient was doing well and was oriented 3 functionally very active 5 weeks ago when she had multiple episodes of diarrhea and was started on Questran. Patient developed acute psychosis from [facility] and was transferred to [facility] for acute psychosis. She was started on medication including neudexta, and citalopram. 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 Daughter on the other hand states that patient does not have any dementia or owning prior to this admission. She started having loose stools at [facility] and was transferred to [facility] but due to insurance issues was transferred to [facility]. Computed tomography scan obtained at [facility] did report moderate amount of stool noted in the rectum with perirectal inflammatory changes related to colitis but no sign of bowel obstruction. Abdominal x-ray done this morning suggested colonic ileus. Patient received 3 enema as in the ER with 3 stools. Patient is intermittently found to be confused. CT head ordered and was negative. She is moving all her extremities unlikely to be stroke. Patient is very weak according to the daughter is unable to come out of her bed but has. Need PT and OT evaluation while patient is here. CBC suggestive of hemoglobin 9.7, platelet 682 with MCV 77. No CMP ordered. 10/22 Patient is much oriented today. Patient had good bowel movement after she had an enema. Neurology evaluated the patient thought confusion might be related to her dehydration and the partial obstruction. Aricept initiated. Psychiatry recommendation pending. Labs drawn today suggestive of severe hypokalemia of 2.8. Glucose 70, calcium 7.7. Patient's albumin 1.9 nutrition consult placed for evaluation of malnutrition. Iron studies ordered for anemia and thrombocytopenia 10/23: Patient has been followed by neurology if EEG is normal she is cleared for discharge from neurology standpoint. EEG is considered within normal limits except EKG leads showed an irregular irregular rhythm with a normal rate. Patient has been seen by psychiatry and showed no signs of psychosis, depression. Her recent hospitalizations appeared to be a result of delirium which is clearing. Recommendations to discontinue Celexa. Diagnosis of cognitive disorder should not be made until the patient has been free of symptoms of delirium for a minimum of 4 months. Would recommend discontinuing Aricept as there is no diagnosis for neurocognitive disorder of the Alzheimer's type. Do not's start Nuedexta is no evidence of pseudo-bulbar affect. Psychiatry is signed off the case. Abdominal x-ray from October 22 showing difficult to exclude transverse colon mass. Partial obstruction versus ileus or enteritis. General surgery has ordered a CAT scan of the abdomen and pelvis with oral contrast only to be done today. Patient is more oriented today. She does have lower extremity edema for which IV fluids will be discontinued. Potassium has been replaced. Patient started on Lasix 20 mg daily. Discharge plan is to [facility] is likely on Saturday. Objective - Vital Signs Vital signs: Vital Signs Temp 98.2 F 10/23/17 07:00 Pulse 68 10/23/17 10:50 Resp 16 10/23/17 10:50 BP 123/58 10/23/17 07:00 Pulse Ox 98 10/23/17 07:00 Intake & Output 10/22/17 10/23/17 10/23/17 18:59 06:59 18:59 Intake Total 1040 120 Balance 1040 120 Weight 61.235 kg Intake: IV 320 Sodium Chloride 0.9% 1, 320 000 ml @ 80 mls/hr IV . [id number] [facility] Rx#:[id number] Oral 720 120 Other: Voiding Method Diaper Diaper Diaper Incontinent Incontinent Incontinent # Voids 1 3 # Bowel Movements 1 1 - Exam General appearance: cooperative, no acute distress appears to be much more conscious than yesterday and answering questions appropriately - EENT Eyes: EOMI, PERRLA, no photophobia, no ptosis ENT: hearing grossly normal, normal oropharynx, no pharyngeal erythema, no tonsillar exudates - Neck Neck: no lymphadenopathy, normal ROM Carotids: bilateral: upstroke normal - Respiratory Respiratory: bilateral: CTA, negative: diminished, dullness, rales, rhonchi, wheezing - Cardiovascular Rhythm: regular Heart sounds: normal: S1, S2 Abnormal Heart Sounds: no systolic murmur, no diastolic murmur ankle Peripheral Edema: absent: None dorsalis pedis Peripheral Pulses: bilateral: Normal - Gastrointestinal General gastrointestinal: no distended, normal bowel sounds, no organomegaly, soft, no tenderness - Integumentary Integumentary: no calor, no cyanotic, ulcer (right heel ulcer around 5 cm in size) - Musculoskeletal Musculoskeletal: generalized weakness - Psychiatric Altered mental status improved Psychiatric: no appropriate affect, no intact judgment & insight - Labs CBC & Chem 7: 10/21/17 07:45 10/23/17 07:28 Labs: Abnormal Lab Results - Last 24 Hours (Table) 10/22/17 10/23/17 Range/Units 18:19 07:28 Potassium 3.4 L (3.5-5.1) mmol/L Chloride 114 H (98-107) mmol/L Calcium 8.2 L (8.4-10.2) mg/dL Total Bilirubin 0.1 L (0.2-1.3) mg/dL Total Protein 4.5 L (6.3-8.2) g/dL Albumin 1.9 L (3.5-5.0) g/dL Assessment and Plan Plan: #1 acute abdominal pain likely secondary to constipation with colonic ileus. Good output with enema . Diarrhea could be related to impaction. CT of the abdomen and pelvis. General surgery is following. #2 change in mental status with possible underlying dementia/psychosis related to medication. Citalopram discontinued by psychiatry. They recommended no neudexta #3 history of iron deficiency anemia continue ferrous sulfate 325 twice a day. Iron studies ordered #4 history of paroxysmal atrial fibrillation continue Xarelto #5 history of COPD continue DuoNeb for shortness of breath as needed #6 DVT prophylaxis on Xarelto #7 history of gout continue allopurinol 300 twice a day #8 chronic pain hold tramadol for constipation #9 history of hypertension continue Norvasc and Imdur or #10 GI prophylaxis continue sucralfate #11 generalized debility PT OT recommended subacute rehab as patient is to go to walk by herself #12 thrombocytosis likely secondary to iron deficiency anemia #13 hypokalemia status post potassium 40 mEq every 2 hours #14 hypoalbuminemia secondary to protein energy malnutrition, moderate. Nutrition consult placed Discharge plan: [facility] on Saturday Impression and plan of care have been directed as dictated by the signing physician. Camelia Hawkins nurse practitioner acting as scribe for signing physician.
[2017-10-23] MEDS: IOPAMIDOL-300 CONTRAST 30 ML VIAL (ORAL USE) PO PRN ×2 (14:37→15:37)
[2017-10-23 16:36] LABS: Iron Saturation 6.54 (12.00-45.00)
--- NOTE | 2017-10-23 16:56 | CT ---
EXAMINATION TYPE: CT abdomen pelvis wo con DATE OF EXAM: 10/23/2017 HISTORY: Patient complains of diarrhea. Possible colonic mass. CT DLP: 298.8 mGycm. Automated Exposure Control for Dose Reduction was Utilized. TECHNIQUE: CT scan of the abdomen and pelvis is performed with oral but without IV contrast. COMPARISON: Outside CT abdomen and pelvis from 3 days ago FINDINGS: Within the limitations of a non-contrast study, the following observations are made. LUNG BASES: There are new tiny bilateral pleural effusions. There is prominence of the interarterial fat consistent with lipomatous hypertrophy of the interarterial septum redemonstrated. There is coron anyi artery calcification in the RCA distribution redemonstrated. There is calcifications at level of mitral valve. There is more prominent linear atelectasis in the left lung base on current study. LIVER/GB: Gallbladder is not visualized and presumed surgically absent. PANCREAS: Some fat replaced atrophy of pancreas is redemonstrated. SPLEEN: No significant abnormality is seen. ADRENALS: No significant abnormality is seen. KIDNEYS: Bladder is higher density likely reflecting some retained contrast from recent IV enhanced C T. Improved distention is seen without persistent suspicious wall thickening. BOWEL: There is redemonstration of small to moderate size hiatal hernia. The oral contrast only reach es level of cecum making evaluation of the colon suboptimal. There is no suspicious small or large elly wel dilatation on current study. A few diverticula in the left and sigmoid colon are redemonstrated. No CT evidence for acute diverticulitis. There is interval resolution of large fecalith in the rectum. There is more prominent wall thickening in the distal rectum/anus seen best coronal image 52. Tumor at this level cannot be excluded. Correl ation with direct visualization is advised. Remainder of colon shows no suspicious areas. GENITAL ORGANS: Uterus is surgically absent. LYMPH NODES: No greater than 1cm abdominal or pelvic lymph nodes are appreciated. OSSEOUS STRUCTURES: Osseous structures are demineralized. There is multilevel moderate to severe spur ring and disc space narrowing in the spine. There is multilevel facet arthropathy redemonstrated. OTHER: Moderate to severe atherosclerotic change of the infrarenal abdominal aorta extending into minal ac branch vessels is redemonstrated. IMPRESSION: Slightly suboptimal study, only suspicious area is distal rectum/anus where there was pro minent fecalith on prior study. Correlation with digital rectal exam and possible scope advised.
[2017-10-23] MEDS: RIVAROXABAN 20 MG TAB PO SCH (17:44)
[2017-10-23] MEDS: POLYETHYLENE GLYCOL 3350 17 GM POWD.PACK PO SCH (20:56)
[2017-10-24 07:52] LABS: ALT 29 U/L (9-52); AST 21 U/L (14-36); Alkaline Phosphatase 114 U/L (38-126); Anion Gap 4 mmol/L; Blood Urea Nitrogen 8 mg/dL (7-17); Calcium 8.3 mg/dL (8.4-10.2); Carbon Dioxide 28 mmol/L (22-30); Chloride 106 mmol/L (98-107); Glucose 84 mg/dL (74-99); Potassium 3.7 mmol/L (3.5-5.1); Sodium 138 mmol/L (137-145); Total Bilirubin 0.2 mg/dL (0.2-1.3); Total Protein 4.7 g/dL (6.3-8.2)
[2017-10-24] MEDS: IPRATROPIUM 0.5 MG/2.5 ML NEBU INHALATION SCH ×4 (08:51→18:54)
[2017-10-24] MEDS: ISOSORBIDE MONONITRATE ER 30 MG TAB.ER.24H PO SCH (08:57)
[2017-10-24] MEDS: FUROSEMIDE 20 MG TAB PO SCH (08:57)
[2017-10-24] MEDS: FERROUS SULFATE 325 MG TAB PO SCH ×2 (08:57→17:53)
[2017-10-24] MEDS: SUCRALFATE 1 GM TAB PO SCH ×2 (08:57→17:50)
[2017-10-24] MEDS: DOCUSATE 100 MG CAP PO SCH ×2 (08:57→20:54)
[2017-10-24] MEDS: PANTOPRAZOLE SODIUM 40 MG GRANULE PKT PO SCH (08:57)
[2017-10-24] MEDS: ALLOPURINOL 300 MG TAB PO SCH ×2 (08:57→20:53)
--- NOTE | 2017-10-24 13:44 | P.PN ---
Subjective Progress Note Date: 10/24/17 82-year-old female sitting up in a chair. Pleasant cooperative oriented 3 is adamant about not having any abdominal pain. States had 2 bowel movements this morning the computed tomography scan of the abdomen pelvis was reviewed by Dr. chavez . In summary the report indicated a large amount of fecal in the rectum no evidence of obstruction Objective - Vital Signs Vital signs: Vital Signs Temp 97.9 F 10/24/17 07:00 Pulse 80 10/24/17 12:21 Resp 18 10/24/17 07:00 BP 119/58 10/24/17 07:00 Pulse Ox 100 10/24/17 07:00 Intake & Output 10/23/17 10/24/17 10/24/17 18:59 06:59 18:59 Intake Total 1380 340 240 Balance 1380 340 240 Weight 61.235 kg Intake: Oral 1380 340 240 Other: Voiding Method Diaper Diaper Diaper Incontinent Incontinent Incontinent # Voids 1 3 1 # Bowel Movements 1 2 1 - Exam Abdomen Soft not distended nontender active bowel tones sitting up taking a diet no difficulty no reports of nausea vomiting is adamant that she is not experiencing any abdominal pain states urinating no difficulty no facial grimacing with palpitation to the abdominal wall - Labs CBC & Chem 7: 10/21/17 07:45 10/24/17 07:06 Labs: Abnormal Lab Results - Last 24 Hours (Table) 10/23/17 10/24/17 Range/Units 07:28 07:06 Calcium 8.3 L (8.4-10.2) mg/dL Iron 14 L (50-170) ug/dL TIBC 214 L (228-460) ug/dL Iron Saturation 6.54 L (12.00-45.00) Total Protein 4.7 L (6.3-8.2) g/dL Albumin 2.0 L (3.5-5.0) g/dL Assessment and Plan Assessment: Impression Present on admission abdominal pain suspect due to constipation CAT scan abdomen pelvis with contrast on October 20 moderate amount of stool within the rectum no evidence of a bowel obstruction findings may relate to colitis Dementia with delusional behavior History of iron deficiency anemia Recent admission to [facility] for depression and delusional behavior History of paroxysmal atrial fibrillation status post cardiac ablation on Xarelto Computed tomography scan abdomen pelvis with contrast show no evidence of diverticulitis diverticulosis noted Repeat abdominal x-ray done on October 22 difficult to exclude a transverse colon mass may be partial obstruction versus ileus versus enteritis ruled out A repeat CAT scan of the abdomen pelvis done on the show no evidence of small bowel obstruction or an ileus plan No evidence of an acute surgical abdomen at this time Bowel regime to be initiated From a surgical perspective patient is felt to be appropriate to be discharged defer to the timing of the discharge to the attending note dictated for dr chavez The above impression and plan of care have been discussed and directed by signing physician. Nithya Foley nurse practitioner acting as scribe for signing physician.
[2017-10-24] MEDS: ESTRADIOL 0.05 MG TRANSDERM SCH (15:32)
[2017-10-24] MEDS: RIVAROXABAN 20 MG TAB PO SCH (17:53)
[2017-10-24] MEDS: POLYETHYLENE GLYCOL 3350 17 GM POWD.PACK PO SCH (20:54)
[2017-10-25] MEDS: IPRATROPIUM 0.5 MG/2.5 ML NEBU INHALATION SCH ×4 (07:28→19:19)
[2017-10-25] MEDS: ALLOPURINOL 300 MG TAB PO SCH ×2 (07:50→22:09)
[2017-10-25] MEDS: DOCUSATE 100 MG CAP PO SCH ×2 (07:50→22:09)
[2017-10-25] MEDS: ISOSORBIDE MONONITRATE ER 30 MG TAB.ER.24H PO SCH (07:50)
[2017-10-25] MEDS: SUCRALFATE 1 GM TAB PO SCH ×2 (07:50→17:03)
[2017-10-25] MEDS: FUROSEMIDE 20 MG TAB PO SCH (07:50)
[2017-10-25] MEDS: FERROUS SULFATE 325 MG TAB PO SCH ×2 (07:51→17:03)
[2017-10-25] MEDS: ACETAMINOPHEN TAB 500 MG TAB PO PRN (07:54)
[2017-10-25] MEDS: PANTOPRAZOLE SODIUM 40 MG GRANULE PKT PO SCH (08:01)
--- NOTE | 2017-10-25 09:12 | P.PN ---
Subjective Progress Note Date: 10/24/17 82 years old female with past medical history of atrial fibrillation, heart failure unknown, COPD, history of stroke, dementia, hyperlipidemia, iron deficiency anemia resents in yesterday after the patient was transferred from [facility] where patient was evaluated for abdominal pain and constipation. According to the daughter patient was doing well and was oriented 3 functionally very active 5 weeks ago when she had multiple episodes of diarrhea and was started on Questran. Patient developed acute psychosis from [facility] and was transferred to [facility] for acute psychosis. She was started on medication including neudexta, and citalopram. 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 Daughter on the other hand states that patient does not have any dementia or owning prior to this admission. She started having loose stools at [facility] and was transferred to [facility] but due to insurance issues was transferred to [facility]. Computed tomography scan obtained at [facility] did report moderate amount of stool noted in the rectum with perirectal inflammatory changes related to colitis but no sign of bowel obstruction. Abdominal x-ray done this morning suggested colonic ileus. Patient received 3 enema as in the ER with 3 stools. Patient is intermittently found to be confused. CT head ordered and was negative. She is moving all her extremities unlikely to be stroke. Patient is very weak according to the daughter is unable to come out of her bed but has. Need PT and OT evaluation while patient is here. CBC suggestive of hemoglobin 9.7, platelet 682 with MCV 77. No CMP ordered. 10/22 Patient is much oriented today. Patient had good bowel movement after she had an enema. Neurology evaluated the patient thought confusion might be related to her dehydration and the partial obstruction. Aricept initiated. Psychiatry recommendation pending. Labs drawn today suggestive of severe hypokalemia of 2.8. Glucose 70, calcium 7.7. Patient's albumin 1.9 nutrition consult placed for evaluation of malnutrition. Iron studies ordered for anemia and thrombocytopenia 10/23: Patient has been followed by neurology if EEG is normal she is cleared for discharge from neurology standpoint. EEG is considered within normal limits except EKG leads showed an irregular irregular rhythm with a normal rate. Patient has been seen by psychiatry and showed no signs of psychosis, depression. Her recent hospitalizations appeared to be a result of delirium which is clearing. Recommendations to discontinue Celexa. Diagnosis of cognitive disorder should not be made until the patient has been free of symptoms of delirium for a minimum of 4 months. Would recommend discontinuing Aricept as there is no diagnosis for neurocognitive disorder of the Alzheimer's type. Do not's start Nuedexta is no evidence of pseudo-bulbar affect. Psychiatry is signed off the case. Abdominal x-ray from October 22 showing difficult to exclude transverse colon mass. Partial obstruction versus ileus or enteritis. General surgery has ordered a CAT scan of the abdomen and pelvis with oral contrast only to be done today. Patient is more oriented today. She does have lower extremity edema for which IV fluids will be discontinued. Potassium has been replaced. Patient started on Lasix 20 mg daily. Discharge plan is to [facility] is likely on Saturday. 10/24: Patient felt that she slept okay last night and is feeling stronger today. CAT scan revealed suspicious area distal rectum/anus where there was prominent fecalith on prior study. Correlation with digital rectal exam and possible scope advised. Patient has continued to be followed by general surgery and there is no indication for any intervention at this time and patient is been cleared for discharge. [facility]ticipate [facility] to [facility] tomorrow. Objective - Vital Signs Vital signs: Vital Signs Temp 97.9 F 10/24/17 07:00 Pulse 80 10/24/17 09:02 Resp 18 10/24/17 07:00 BP 119/58 10/24/17 07:00 Pulse Ox 100 10/24/17 07:00 Intake & Output 10/23/17 10/24/17 10/24/17 18:59 06:59 18:59 Intake Total 1380 340 240 Balance 1380 340 240 Weight 61.235 kg Intake: Oral 1380 340 240 Other: Voiding Method Diaper Diaper Incontinent Incontinent # Voids 1 3 # Bowel Movements 1 2 - Exam General appearance: cooperative, no acute distress appears to be much more conscious than yesterday and answering questions appropriately - EENT Eyes: EOMI, PERRLA, no photophobia, no ptosis ENT: hearing grossly normal, normal oropharynx, no pharyngeal erythema, no tonsillar exudates - Neck Neck: no lymphadenopathy, normal ROM Carotids: bilateral: upstroke normal - Respiratory Respiratory: bilateral: CTA, negative: diminished, dullness, rales, rhonchi, wheezing - Cardiovascular Rhythm: regular Heart sounds: normal: S1, S2 Abnormal Heart Sounds: no systolic murmur, no diastolic murmur ankle Peripheral Edema: absent: None dorsalis pedis Peripheral Pulses: bilateral: Normal - Gastrointestinal General gastrointestinal: no distended, normal bowel sounds, no organomegaly, soft, no tenderness - Integumentary Integumentary: no calor, no cyanotic, ulcer (right heel ulcer around 5 cm in size) - Musculoskeletal Musculoskeletal: generalized weakness - Psychiatric Altered mental status improved Psychiatric: no appropriate affect, no intact judgment & insight - Labs CBC & Chem 7: 10/21/17 07:45 10/24/17 07:06 Labs: Abnormal Lab Results - Last 24 Hours (Table) 10/23/17 10/24/17 Range/Units 07:28 07:06 Calcium 8.3 L (8.4-10.2) mg/dL Iron 14 L (50-170) ug/dL TIBC 214 L (228-460) ug/dL Iron Saturation 6.54 L (12.00-45.00) Total Protein 4.7 L (6.3-8.2) g/dL Albumin 2.0 L (3.5-5.0) g/dL Assessment and Plan Plan: #1 acute abdominal pain likely secondary to constipation with colonic ileus. Good output with enema . Diarrhea could be related to impaction. CT of the abdomen and pelvis. General surgery is following. #2 change in mental status with possible underlying dementia/psychosis related to medication. Citalopram discontinued by psychiatry. They recommended no neudexta #3 history of iron deficiency anemia continue ferrous sulfate 325 twice a day. Iron studies ordered #4 history of paroxysmal atrial fibrillation continue Xarelto #5 history of COPD continue DuoNeb for shortness of breath as needed #6 DVT prophylaxis on Xarelto #7 history of gout continue allopurinol 300 twice a day #8 chronic pain hold tramadol for constipation #9 history of hypertension continue Norvasc and Imdur or #10 GI prophylaxis continue sucralfate #11 generalized debility PT OT recommended subacute rehab as patient is to go to walk by herself #12 thrombocytosis likely secondary to iron deficiency anemia #13 hypokalemia status post potassium 40 mEq every 2 hours #14 hypoalbuminemia secondary to protein energy malnutrition, moderate. Nutrition consult placed Discharge plan: [facility] on Saturday Impression and plan of care have been directed as dictated by the signing physician. Camelia Hawkisn nurse practitioner acting as scribe for signing physician.
--- NOTE | 2017-10-25 09:21 | P.DS ---
Providers Date of admission: 10/22/17 14:57 Expected date of discharge: 10/25/17 Attending physician: Colby Lopez Consults: 10/20/17 20:13 Consult Physician Routine Consulting Provider: Rafiq Martin Consult Reason/Comments: Mild perirectal inflammatory changes possible stercoral colitis Do you want consulting provider notified?: Yes 10/21/17 11:45 Consult Physician Routine Consulting Provider: Jonatan Rodriguez Consult Reason/Comments: confusion, dx of dementia? Do you want consulting provider notified?: Yes 10/21/17 17:01 Consult Physician Routine Consulting Provider: Kayla Mckeon Consult Reason/Comments: change in mental status on neudexta Do you want consulting provider notified?: Yes Primary care physician: [facility] Course: 82 years old female with past medical history of atrial fibrillation, heart failure unknown, COPD, history of stroke, dementia, hyperlipidemia, iron deficiency anemia resents in yesterday after the patient was transferred from [facility] where patient was evaluated for abdominal pain and constipation. According to the daughter patient was doing well and was oriented 3 functionally very active 5 weeks ago when she had multiple episodes of diarrhea and was started on Questran. Patient developed acute psychosis from Questran and was transferred to [facility] for acute psychosis. She was started on medication including neudexta, and citalopram. 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 Daughter on the other hand states that patient does not have any dementia or sundowning prior to this admission. She started having loose stools at [facility] and was transferred to [facility] but due to insurance issues was transferred to [facility]. Computed tomography scan obtained at [facility] did report moderate amount of stool noted in the rectum with perirectal inflammatory changes related to colitis but no sign of bowel obstruction. Abdominal x-ray done this morning suggested colonic ileus. Patient received 3 enema as in the ER with 3 stools. Patient is intermittently found to be confused. CT head ordered and was negative. She is moving all her extremities unlikely to be stroke. Patient is very weak according to the daughter is unable to come out of her bed but has. Need PT and OT evaluation while patient is here. CBC suggestive of hemoglobin 9.7, platelet 682 with MCV 77. No CMP ordered. 10/22 Patient is much oriented today. Patient had good bowel movement after she had an enema. Neurology evaluated the patient thought confusion might be related to her dehydration and the partial obstruction. Aricept initiated. Psychiatry recommendation pending. Labs drawn today suggestive of severe hypokalemia of 2.8. Glucose 70, calcium 7.7. Patient's albumin 1.9 nutrition consult placed for evaluation of malnutrition. Iron studies ordered for anemia and thrombocytopenia 10/23: Patient has been followed by neurology if EEG is normal she is cleared for discharge from neurology standpoint. EEG is considered within normal limits except EKG leads showed an irregular irregular rhythm with a normal rate. Patient has been seen by psychiatry and showed no signs of psychosis, depression. Her recent hospitalizations appeared to be a result of delirium which is clearing. Recommendations to discontinue Celexa. Diagnosis of cognitive disorder should not be made until the patient has been free of symptoms of delirium for a minimum of 4 months. Would recommend discontinuing Aricept as there is no diagnosis for neurocognitive disorder of the Alzheimer's type. Do not's start Nuedexta is no evidence of pseudo-bulbar affect. Psychiatry is signed off the case. Abdominal x-ray from October 22 showing difficult to exclude transverse colon mass. Partial obstruction versus ileus or enteritis. General surgery has ordered a CAT scan of the abdomen and pelvis with oral contrast only to be done today. Patient is more oriented today. She does have lower extremity edema for which IV fluids will be discontinued. Potassium has been replaced. Patient started on Lasix 20 mg daily. Discharge plan is to [facility] is likely on Saturday. 10/24: Patient felt that she slept okay last night and is feeling stronger today. CAT scan revealed suspicious area distal rectum/anus where there was prominent fecalith on prior study. Correlation with digital rectal exam and possible scope advised. Patient has continued to be followed by general surgery and there is no indication for any intervention at this time and patient is been cleared for discharge. Anticipate discharge to intermediate tomorrow. 10/25: Patient has no new complaints today except for arthritis pain since we took off all pain meds when she came in. We will resume only Tramadol and she will be started on cefuroxime for UTI. Culture report is pending. We'll plan to discharge today in stable condition to [facility] once insurance authorization has been obtained. Discharge diagnoses: 1 acute abdominal pain likely secondary to constipation with colonic ileus. 2 change in mental status with possible underlying dementia/psychosis related to medication. Citalopram discontinued by psychiatry. They recommended no neudexta 3 history of iron deficiency anemia, chronic 4 history of paroxysmal atrial fibrillation 5 history of COPD 6 unspecified gout 7 chronic pain 8 history of hypertension 9 generalized debility 10 thrombocytosis likely secondary to iron deficiency anemia 11 hypokalemia 12 hypoalbuminemia secondary to moderate calorie protein malnutrition. 13 UTI Discharge plan: [facility] on Saturday Impression and plan of care have been directed as dictated by the signing physician. Camelia Hawkins nurse practitioner acting as scribe for signing physician. Patient Condition at Discharge: Good Plan - Discharge Summary New Discharge Prescriptions: New Docusate [Colace] 100 mg PO BID PRN cap PRN Reason: Constipation Polyethylene Glycol 3350 [Miralax] 17 gm PO HS powd.pack Cefuroxime [Ceftin] 250 mg PO BID #14 tablet traMADol HCL [Ultram] 50 mg PO TID #90 tab Continue Sucralfate [Carafate] 1 gm PO BID@0900,1700 Ferrous Sulfate [Iron] 325 mg PO BID@0900,1700 Isosorbide Mononitrate ER [Imdur] 30 mg PO DAILY@0900 Acetaminophen Tab [Tylenol] 500 mg PO Q6HR PRN PRN Reason: Pain Allopurinol [Zyloprim] 300 mg PO BID Rivaroxaban [Xarelto] 20 mg PO HS@1700 amLODIPine [Norvasc] 5 mg PO DAILY PRN PRN Reason: Blood Pressure - High Estradiol 0.05MG/24Hr Biwkptch [Vivelle-Dot 0.05 MG] 1 patch TRANSDERM Q84H Omeprazole 20 mg PO BID@0900,1700 Tiotropium 18 Mcg/Puff [Spiriva] 1 cap INHALATION RT-DAILY Discontinued Nuedexta 20-10mg 1 tab PO DIRECTED traMADol HCL [Ultram] 50 mg PO TID PRN PRN Reason: Pain Diclofenac Sodium [Diclofenac Sodium ER] 100 mg PO DAILY@1700 Citalopram Hydrobromide [CeleXA] 20 mg PO DIRECTED Meclizine [Antivert] 50 mg PO TID ALPRAZolam [Xanax] 0.5 mg PO DAILY ALPRAZolam [Xanax] 0.25 - 0.5 mg PO HS PRN PRN Reason: anxiety/sleep Discharge Medication List Acetaminophen Tab [Tylenol] 500 mg PO Q6HR PRN 10/20/17 [History] Allopurinol [Zyloprim] 300 mg PO BID 10/20/17 [History] Estradiol 0.05MG/24Hr Biwkptch [Vivelle-Dot 0.05 MG] 1 patch TRANSDERM Q84H [History] Ferrous Sulfate [Iron] 325 mg PO BID@0900,1700 10/20/17 [History] Isosorbide Mononitrate ER [Imdur] 30 mg PO DAILY@0900 10/20/17 [History] Omeprazole 20 mg PO BID@0900,1700 10/20/17 [History] Rivaroxaban [Xarelto] 20 mg PO HS@1700 10/20/17 [History] Sucralfate [Carafate] 1 gm PO BID@0900,1700 10/20/17 [History] Tiotropium 18 Mcg/Puff [Spiriva] 1 cap INHALATION RT-DAILY 10/20/17 [History] amLODIPine [Norvasc] 5 mg PO DAILY PRN 10/20/17 [History] Cefuroxime [Ceftin] 250 mg PO BID #14 tablet 10/25/17 [Rx] Docusate [Colace] 100 mg PO BID PRN cap 10/25/17 [Rx] Polyethylene Glycol 3350 [Miralax] 17 gm PO HS powd.pack 10/25/17 [Rx] traMADol HCL [Ultram] 50 mg PO TID #90 tab 10/25/17 [Rx] Follow up Appointment(s)/Referral(s): Ruel aCmpa DO [Primary Care Provider] - 1 Week (after discharge from [facility]) Discharge Disposition: TRANSFER TO SNF/ECF
[2017-10-25 11:00] LABS: Appearance,Urine Turbid (Clear); Bacteria,Urine Few /hpf; Bilirubin,Urine Negative (Negative); Blood,Urine Large (Negative); Color,Urine Light Red; Glucose,Urine (UA) Negative (Negative); Ketones,Urine Negative (Negative); Leukocyte Esterase,Urine Large (Negative); Mucus,Urine Rare /hpf; Nitrite,Urine Negative (Negative); PH, Urine 7.5 (5.0-8.0); Protein,Urine 1+ (Negative); RBC,Urine >182 /hpf (0-5); Specific Gravity,Urine 1.015 (1.001-1.035); Squamous Epithelial Cell,Urine 6 /hpf (0-4); Urobilinogen,Urine <2.0 mg/dL (<2.0); WBC,Urine >182 /hpf (0-5)
[2017-10-25 12:54] LABS: Anisocytosis Slight; HCT 32.5 % (34.0-46.0); HGB 9.3 gm/dL (11.4-16.0); Hypochromasia Marked; MCH 21.8 pg (25.0-35.0); MCHC 28.6 g/dL (31.0-37.0); MCV 76.5 fL (80.0-100.0); Microcytosis Slight; Platelet Count 606 k/uL (150-450); RBC 4.25 m/uL (3.80-5.40); RDW 17.5 % (11.5-15.5)
[2017-10-25] MEDS: CEFUROXIME 250 MG TAB PO SCH ×2 (14:38→22:09)
--- NOTE | 2017-10-25 14:50 | P.PN ---
Subjective Progress Note Date: 10/25/17 82 years old female with past medical history of atrial fibrillation, heart failure unknown, COPD, history of stroke, dementia, hyperlipidemia, iron deficiency anemia resents in yesterday after the patient was transferred from [facility] where patient was evaluated for abdominal pain and constipation. According to the daughter patient was doing well and was oriented 3 functionally very active 5 weeks ago when she had multiple episodes of diarrhea and was started on Questran. Patient developed acute psychosis from [facility] and was transferred to [facility] for acute psychosis. She was started on medication including neudexta, and citalopram. 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 Daughter on the other hand states that patient does not have any dementia or owning prior to this admission. She started having loose stools at [facility] and was transferred to [facility] but due to insurance issues was transferred to [facility]. Computed tomography scan obtained at [facility] did report moderate amount of stool noted in the rectum with perirectal inflammatory changes related to colitis but no sign of bowel obstruction. Abdominal x-ray done this morning suggested colonic ileus. Patient received 3 enema as in the ER with 3 stools. Patient is intermittently found to be confused. CT head ordered and was negative. She is moving all her extremities unlikely to be stroke. Patient is very weak according to the daughter is unable to come out of her bed but has. Need PT and OT evaluation while patient is here. CBC suggestive of hemoglobin 9.7, platelet 682 with MCV 77. No CMP ordered. 10/22 Patient is much oriented today. Patient had good bowel movement after she had an enema. Neurology evaluated the patient thought confusion might be related to her dehydration and the partial obstruction. Aricept initiated. Psychiatry recommendation pending. Labs drawn today suggestive of severe hypokalemia of 2.8. Glucose 70, calcium 7.7. Patient's albumin 1.9 nutrition consult placed for evaluation of malnutrition. Iron studies ordered for anemia and thrombocytopenia 10/23: Patient has been followed by neurology if EEG is normal she is cleared for discharge from neurology standpoint. EEG is considered within normal limits except EKG leads showed an irregular irregular rhythm with a normal rate. Patient has been seen by psychiatry and showed no signs of psychosis, depression. Her recent hospitalizations appeared to be a result of delirium which is clearing. Recommendations to discontinue Celexa. Diagnosis of cognitive disorder should not be made until the patient has been free of symptoms of delirium for a minimum of 4 months. Would recommend discontinuing Aricept as there is no diagnosis for neurocognitive disorder of the Alzheimer's type. Do not's start Nuedexta is no evidence of pseudo-bulbar affect. Psychiatry is signed off the case. Abdominal x-ray from October 22 showing difficult to exclude transverse colon mass. Partial obstruction versus ileus or enteritis. General surgery has ordered a CAT scan of the abdomen and pelvis with oral contrast only to be done today. Patient is more oriented today. She does have lower extremity edema for which IV fluids will be discontinued. Potassium has been replaced. Patient started on Lasix 20 mg daily. Discharge plan is to [facility] is likely on Saturday. 10/24: Patient felt that she slept okay last night and is feeling stronger today. CAT scan revealed suspicious area distal rectum/anus where there was prominent fecalith on prior study. Correlation with digital rectal exam and possible scope advised. Patient has continued to be followed by general surgery and there is no indication for any intervention at this time and patient is been cleared for discharge. Anticipate discharge to retirement tomorrow. 10/25: Patient has no new complaints today except for arthritis pain since we took off all pain meds when she came in. We will resume only Tramadol and she will be started on cefuroxime for UTI. Culture report is pending. We'll plan to discharge today in stable condition to [facility] once insurance authorization has been obtained. By late afternoon, [facility] had not decided if they will accept the patient and authorization from the insurance company has not been initiated. Patient will be unable to be discharged and will be here over the weekend. Objective - Vital Signs Vital signs: Vital Signs Temp 97.9 F 10/25/17 07:00 Pulse 68 10/25/17 11:20 Resp 16 10/25/17 11:10 BP 121/58 10/25/17 07:00 Pulse Ox 98 10/25/17 07:00 Intake & Output 10/24/17 10/25/17 10/25/17 18:59 06:59 18:59 Intake Total 240 440 Balance 240 440 Weight 61.235 kg Intake: IV 200 Sodium Chloride 0.9% @50 200 Oral 240 240 Other: Voiding Method Diaper Diaper Diaper Incontinent # Voids 6 2 1 # Bowel Movements 1 1 - Exam General appearance: cooperative, no acute distress appears to be much more conscious than yesterday and answering questions appropriately - EENT Eyes: EOMI, PERRLA, no photophobia, no ptosis ENT: hearing grossly normal, normal oropharynx, no pharyngeal erythema, no tonsillar exudates - Neck Neck: no lymphadenopathy, normal ROM Carotids: bilateral: upstroke normal - Respiratory Respiratory: bilateral: CTA, negative: diminished, dullness, rales, rhonchi, wheezing - Cardiovascular Rhythm: regular Heart sounds: normal: S1, S2 Abnormal Heart Sounds: no systolic murmur, no diastolic murmur ankle Peripheral Edema: absent: None dorsalis pedis Peripheral Pulses: bilateral: Normal - Gastrointestinal General gastrointestinal: no distended, normal bowel sounds, no organomegaly, soft, no tenderness - Integumentary Integumentary: no calor, no cyanotic, ulcer (right heel ulcer around 5 cm in size) - Musculoskeletal Musculoskeletal: generalized weakness - Psychiatric Altered mental status improved Psychiatric: no appropriate affect, no intact judgment & insight - Labs CBC & Chem 7: 10/25/17 12:28 10/24/17 07:06 Labs: Abnormal Lab Results - Last 24 Hours (Table) 10/25/17 10/25/17 Range/Units 10:30 12:28 Hgb 9.3 L (11.4-16.0) gm/dL Hct 32.5 L (34.0-46.0) % MCV 76.5 L (80.0-100.0) fL MCH 21.8 L (25.0-35.0) pg MCHC 28.6 L (31.0-37.0) g/dL RDW 17.5 H (11.5-15.5) % Plt Count 606 H (150-450) k/uL Urine Appearance Turbid H (Clear) Urine Protein 1+ H (Negative) Urine Blood Large H (Negative) Ur Leukocyte Esterase Large H (Negative) Urine RBC >182 H (0-5) /hpf Urine WBC >182 H (0-5) /hpf Urine WBC Clumps Many H (None) /hpf Ur Squamous Epith Cells 6 H (0-4) /hpf Urine Bacteria Few H (None) /hpf Urine Mucus Rare H (None) /hpf Assessment and Plan Plan: #1 acute abdominal pain likely secondary to constipation with colonic ileus. Good output with enema . Diarrhea could be related to impaction. CT of the abdomen and pelvis. General surgery is following. Patient is currently stable and tolerating diet. #2 change in mental status with possible underlying dementia/psychosis related to medication. Citalopram discontinued by psychiatry. They recommended no neudexta #3 history of iron deficiency anemia continue ferrous sulfate 325 twice a day. Iron studies ordered #4 history of paroxysmal atrial fibrillation continue Xarelto #5 history of COPD continue DuoNeb for shortness of breath as needed #6 DVT prophylaxis on Xarelto #7 history of gout continue allopurinol 300 twice a day #8 chronic pain. Patient requesting tramadol be resumed which will be done. #9 history of hypertension continue Norvasc and Imdur #10 GI prophylaxis continue sucralfate #11 generalized debility PT OT recommended subacute rehab as patient is to go to walk by herself #12 thrombocytosis likely secondary to iron deficiency anemia #13 hypokalemia status post potassium 40 mEq every 2 hours #14 hypoalbuminemia secondary to protein energy malnutrition, moderate. Nutrition consult placed Discharge plan: [facility] on Saturday--delayed until Saturday Impression and plan of care have been directed as dictated by the signing physician. Camelia Hawkins nurse practitioner acting as scribe for signing physician.
[2017-10-25] MEDS: RIVAROXABAN 20 MG TAB PO SCH (17:03)
[2017-10-25] MEDS: ETODOLAC 400 MG TAB PO SCH (17:03)
[2017-10-25] MEDS: POLYETHYLENE GLYCOL 3350 17 GM POWD.PACK PO SCH (22:09)
[2017-10-26] MEDS: IPRATROPIUM 0.5 MG/2.5 ML NEBU INHALATION SCH ×4 (07:34→21:03)
[2017-10-26] MEDS: ETODOLAC 400 MG TAB PO SCH (08:23)
[2017-10-26] MEDS: ISOSORBIDE MONONITRATE ER 30 MG TAB.ER.24H PO SCH (08:23)
[2017-10-26] MEDS: FUROSEMIDE 20 MG TAB PO SCH (08:23)
[2017-10-26] MEDS: SUCRALFATE 1 GM TAB PO SCH ×2 (08:23→18:01)
[2017-10-26] MEDS: FERROUS SULFATE 325 MG TAB PO SCH ×2 (08:23→18:01)
[2017-10-26] MEDS: PANTOPRAZOLE SODIUM 40 MG GRANULE PKT PO SCH (08:23)
[2017-10-26] MEDS: DOCUSATE 100 MG CAP PO SCH ×2 (08:23→20:53)
[2017-10-26] MEDS: CEFUROXIME 250 MG TAB PO SCH ×2 (08:24→20:53)
[2017-10-26] MEDS: ALLOPURINOL 300 MG TAB PO SCH ×2 (08:24→20:53)
--- NOTE | 2017-10-26 16:04 | P.PN ---
Subjective Progress Note Date: 10/26/17 82 years old female with past medical history of atrial fibrillation, heart failure unknown, COPD, history of stroke, dementia, hyperlipidemia, iron deficiency anemia resents in yesterday after the patient was transferred from [facility] where patient was evaluated for abdominal pain and constipation. According to the daughter patient was doing well and was oriented 3 functionally very active 5 weeks ago when she had multiple episodes of diarrhea and was started on Questran. Patient developed acute psychosis from [facility] and was transferred to [facility] for acute psychosis. She was started on medication including neudexta, and citalopram. 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 Daughter on the other hand states that patient does not have any dementia or owning prior to this admission. She started having loose stools at [facility] and was transferred to [facility] but due to insurance issues was transferred to [facility]. Computed tomography scan obtained at [facility] did report moderate amount of stool noted in the rectum with perirectal inflammatory changes related to colitis but no sign of bowel obstruction. Abdominal x-ray done this morning suggested colonic ileus. Patient received 3 enema as in the ER with 3 stools. Patient is intermittently found to be confused. CT head ordered and was negative. She is moving all her extremities unlikely to be stroke. Patient is very weak according to the daughter is unable to come out of her bed but has. Need PT and OT evaluation while patient is here. CBC suggestive of hemoglobin 9.7, platelet 682 with MCV 77. No CMP ordered. 10/22 Patient is much oriented today. Patient had good bowel movement after she had an enema. Neurology evaluated the patient thought confusion might be related to her dehydration and the partial obstruction. Aricept initiated. Psychiatry recommendation pending. Labs drawn today suggestive of severe hypokalemia of 2.8. Glucose 70, calcium 7.7. Patient's albumin 1.9 nutrition consult placed for evaluation of malnutrition. Iron studies ordered for anemia and thrombocytopenia 10/23: Patient has been followed by neurology if EEG is normal she is cleared for discharge from neurology standpoint. EEG is considered within normal limits except EKG leads showed an irregular irregular rhythm with a normal rate. Patient has been seen by psychiatry and showed no signs of psychosis, depression. Her recent hospitalizations appeared to be a result of delirium which is clearing. Recommendations to discontinue Celexa. Diagnosis of cognitive disorder should not be made until the patient has been free of symptoms of delirium for a minimum of 4 months. Would recommend discontinuing Aricept as there is no diagnosis for neurocognitive disorder of the Alzheimer's type. Do not's start Nuedexta is no evidence of pseudo-bulbar affect. Psychiatry is signed off the case. Abdominal x-ray from October 22 showing difficult to exclude transverse colon mass. Partial obstruction versus ileus or enteritis. General surgery has ordered a CAT scan of the abdomen and pelvis with oral contrast only to be done today. Patient is more oriented today. She does have lower extremity edema for which IV fluids will be discontinued. Potassium has been replaced. Patient started on Lasix 20 mg daily. Discharge plan is to [facility] is likely on Saturday. 10/24: Patient felt that she slept okay last night and is feeling stronger today. CAT scan revealed suspicious area distal rectum/anus where there was prominent fecalith on prior study. Correlation with digital rectal exam and possible scope advised. Patient has continued to be followed by general surgery and there is no indication for any intervention at this time and patient is been cleared for discharge. Anticipate discharge to long-term tomorrow. 10/25: Patient has no new complaints today except for arthritis pain since we took off all pain meds when she came in. We will resume only Tramadol and she will be started on cefuroxime for UTI. Culture report is pending. We'll plan to discharge today in stable condition to [facility] once insurance authorization has been obtained. By late afternoon, [facility] had not decided if they will accept the patient and authorization from the insurance company has not been initiated. Patient will be unable to be discharged and will be here over the weekend. 10/26: Patient with no complaints today. Significant weakness bilateral lower extremity with no improvement since yesterday. Tramadol and diclofenac initiated on patient's family requested. Family was upset about holding diclofenac in the hospital. Explained to the family the risk factor and side effects associated with continuous Detussin macules in the hospital including ulcers, kidney dysfunction. Patient is adamant to continue the diclofenac despite side effects as it is helpful for the knee pain. Awaiting authorization from the rehab Objective - Vital Signs Vital signs: Vital Signs Temp 98.2 F 10/26/17 15:00 Pulse 70 10/26/17 15:48 Resp 18 10/26/17 15:00 BP 136/78 10/26/17 15:00 Pulse Ox 97 10/26/17 15:00 Intake & Output 10/25/17 10/26/17 10/26/17 18:59 06:59 18:59 Intake Total 890 Balance 890 Intake: Oral 890 Other: Voiding Method Diaper Diaper # Voids 4 2 1 # Bowel Movements 1 - Exam - Exam General appearance: cooperative, no acute distress answering questions appropriately. Confusion resolved - EENT Eyes: EOMI, PERRLA, no photophobia, no ptosis ENT: hearing grossly normal, normal oropharynx, no pharyngeal erythema, no tonsillar exudates - Neck Neck: no lymphadenopathy, normal ROM Carotids: bilateral: upstroke normal - Respiratory Respiratory: bilateral: CTA, negative: diminished, dullness, rales, rhonchi, wheezing - Cardiovascular Rhythm: regular Heart sounds: normal: S1, S2 Abnormal Heart Sounds: no systolic murmur, no diastolic murmur ankle Peripheral Edema: absent: None dorsalis pedis Peripheral Pulses: bilateral: Normal - Gastrointestinal General gastrointestinal: no distended, normal bowel sounds, no organomegaly, soft, no tenderness - Integumentary Integumentary: no calor, no cyanotic, ulcer (right heel ulcer around 5 cm in size) - Musculoskeletal Musculoskeletal: generalized weakness, significant weakness bilaterally 3/5 strenght b/l - Psychiatric Altered mental status improved Psychiatric: no appropriate affect, no intact judgment & insight - Labs CBC & Chem 7: 10/25/17 12:28 10/24/17 07:06 Labs: Microbiology - Last 24 Hours (Table) 10/25/17 10:30 Urine Culture - Preliminary Urine,Voided Gram Neg Bacilli Assessment and Plan Plan: #1 acute abdominal pain likely secondary to constipation with colonic ileus. resolved Good output with enema . Diarrhea could be related to impaction. CT of the abdomen and pelvis negative. Patient is currently stable and tolerating diet. #2 change in mental status with possible underlying dementia/psychosis related to medication. resolved. Citalopram discontinued by psychiatry. They recommended no neudexta #3 history of iron deficiency anemia continue ferrous sulfate 325 twice a day. Iron studies ordered #4 history of paroxysmal atrial fibrillation continue Xarelto #5 history of COPD continue DuoNeb for shortness of breath as needed #6 DVT prophylaxis on Xarelto #7 history of gout continue allopurinol 300 twice a day #8 chronic pain. Patient requesting tramadol be resumed which will be done. #9 history of hypertension continue Norvasc and Imdur #10 GI prophylaxis continue sucralfate #11 generalized debility PT OT recommended subacute rehab as patient is to go to walk by herself #12 thrombocytosis likely secondary to iron deficiency anemia #13 hypokalemia status post potassium 40 mEq every 2 hours #14 hypoalbuminemia secondary to protein energy malnutrition, moderate. ensure initiated Discharge plan: [facility] on Saturday--delayed until Saturday
[2017-10-26] MEDS: RIVAROXABAN 20 MG TAB PO SCH (18:01)
[2017-10-26] MEDS: POLYETHYLENE GLYCOL 3350 17 GM POWD.PACK PO SCH (20:53)
[2017-10-27] MEDS: FERROUS SULFATE 325 MG TAB PO SCH ×2 (08:15→17:18)
[2017-10-27] MEDS: ETODOLAC 400 MG TAB PO SCH (08:15)
[2017-10-27] MEDS: CEFUROXIME 250 MG TAB PO SCH ×2 (08:15→20:03)
[2017-10-27] MEDS: SUCRALFATE 1 GM TAB PO SCH ×2 (08:15→17:18)
[2017-10-27] MEDS: FUROSEMIDE 20 MG TAB PO SCH (08:15)
[2017-10-27] MEDS: PANTOPRAZOLE SODIUM 40 MG GRANULE PKT PO SCH (08:15)
[2017-10-27] MEDS: ALLOPURINOL 300 MG TAB PO SCH ×2 (08:15→20:03)
[2017-10-27] MEDS: DOCUSATE 100 MG CAP PO SCH ×2 (08:16→20:03)
[2017-10-27] MEDS: ISOSORBIDE MONONITRATE ER 30 MG TAB.ER.24H PO SCH (08:16)
[2017-10-27] MEDS: IPRATROPIUM 0.5 MG/2.5 ML NEBU INHALATION SCH ×4 (08:28→19:41)
--- NOTE | 2017-10-27 15:38 | P.PN ---
Subjective Progress Note Date: 10/27/17 82 years old female with past medical history of atrial fibrillation, heart failure unknown, COPD, history of stroke, dementia, hyperlipidemia, iron deficiency anemia resents in yesterday after the patient was transferred from [facility] where patient was evaluated for abdominal pain and constipation. According to the daughter patient was doing well and was oriented 3 functionally very active 5 weeks ago when she had multiple episodes of diarrhea and was started on Questran. Patient developed acute psychosis from [facility] and was transferred to [facility] for acute psychosis. She was started on medication including neudexta, and citalopram. 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 Daughter on the other hand states that patient does not have any dementia or owning prior to this admission. She started having loose stools at [facility] and was transferred to [facility] but due to insurance issues was transferred to [facility]. Computed tomography scan obtained at [facility] did report moderate amount of stool noted in the rectum with perirectal inflammatory changes related to colitis but no sign of bowel obstruction. Abdominal x-ray done this morning suggested colonic ileus. Patient received 3 enema as in the ER with 3 stools. Patient is intermittently found to be confused. CT head ordered and was negative. She is moving all her extremities unlikely to be stroke. Patient is very weak according to the daughter is unable to come out of her bed but has. Need PT and OT evaluation while patient is here. CBC suggestive of hemoglobin 9.7, platelet 682 with MCV 77. No CMP ordered. 10/22 Patient is much oriented today. Patient had good bowel movement after she had an enema. Neurology evaluated the patient thought confusion might be related to her dehydration and the partial obstruction. Aricept initiated. Psychiatry recommendation pending. Labs drawn today suggestive of severe hypokalemia of 2.8. Glucose 70, calcium 7.7. Patient's albumin 1.9 nutrition consult placed for evaluation of malnutrition. Iron studies ordered for anemia and thrombocytopenia 10/23: Patient has been followed by neurology if EEG is normal she is cleared for discharge from neurology standpoint. EEG is considered within normal limits except EKG leads showed an irregular irregular rhythm with a normal rate. Patient has been seen by psychiatry and showed no signs of psychosis, depression. Her recent hospitalizations appeared to be a result of delirium which is clearing. Recommendations to discontinue Celexa. Diagnosis of cognitive disorder should not be made until the patient has been free of symptoms of delirium for a minimum of 4 months. Would recommend discontinuing Aricept as there is no diagnosis for neurocognitive disorder of the Alzheimer's type. Do not's start Nuedexta is no evidence of pseudo-bulbar affect. Psychiatry is signed off the case. Abdominal x-ray from October 22 showing difficult to exclude transverse colon mass. Partial obstruction versus ileus or enteritis. General surgery has ordered a CAT scan of the abdomen and pelvis with oral contrast only to be done today. Patient is more oriented today. She does have lower extremity edema for which IV fluids will be discontinued. Potassium has been replaced. Patient started on Lasix 20 mg daily. Discharge plan is to [facility] is likely on Saturday. 10/24: Patient felt that she slept okay last night and is feeling stronger today. CAT scan revealed suspicious area distal rectum/anus where there was prominent fecalith on prior study. Correlation with digital rectal exam and possible scope advised. Patient has continued to be followed by general surgery and there is no indication for any intervention at this time and patient is been cleared for discharge. Anticipate discharge to [facility] tomorrow. 10/25: Patient has no new complaints today except for arthritis pain since we took off all pain meds when she came in. We will resume only Tramadol and she will be started on cefuroxime for UTI. Culture report is pending. We'll plan to discharge today in stable condition to [facility] once insurance authorization has been obtained. By late afternoon, [facility] had not decided if they will accept the patient and authorization from the insurance company has not been initiated. Patient will be unable to be discharged and will be here over the weekend. 10/26: Patient with no complaints today. Significant weakness bilateral lower extremity with no improvement since yesterday. Tramadol and diclofenac initiated on patient's family requested. Family was upset about holding diclofenac in the hospital. Explained to the family the risk factor and side effects associated with continuous Detussin macules in the hospital including ulcers, kidney dysfunction. Patient is adamant to continue the diclofenac despite side effects as it is helpful for the knee pain. Awaiting authorization from the rehab 10/27. Patient examined bedside. Complains of weakness in the lower extremity. Was able to sit in the chair with assistance. Pain controlled on tramadol and baclofen. Family is unable to take patient home as patient lives alone. Awaiting authorization from the rehab. Objective - Vital Signs Vital signs: Vital Signs Temp 96.4 F L 10/27/17 15:00 Pulse 90 10/27/17 15:00 Resp 18 10/27/17 15:00 BP 109/56 10/27/17 15:00 Pulse Ox 94 L 10/27/17 15:00 Intake & Output 10/26/17 10/27/17 10/27/17 18:59 06:59 18:59 Intake Total 4800 1600 2160 Balance 4800 1600 2160 Intake: Oral 4800 1600 2160 Other: Voiding Method Diaper Diaper Diaper # Voids 3 1 1 - Exam - Exam General appearance: cooperative, no acute distress answering questions appropriately. Confusion resolved - EENT Eyes: EOMI, PERRLA, no photophobia, no ptosis ENT: hearing grossly normal, normal oropharynx, no pharyngeal erythema, no tonsillar exudates - Neck Neck: no lymphadenopathy, normal ROM Carotids: bilateral: upstroke normal - Respiratory Respiratory: bilateral: CTA, negative: diminished, dullness, rales, rhonchi, wheezing - Cardiovascular Rhythm: regular Heart sounds: normal: S1, S2 Abnormal Heart Sounds: no systolic murmur, no diastolic murmur ankle Peripheral Edema: absent: None dorsalis pedis Peripheral Pulses: bilateral: Normal - Gastrointestinal General gastrointestinal: no distended, normal bowel sounds, no organomegaly, soft, no tenderness - Integumentary Integumentary: no calor, no cyanotic, ulcer (right heel ulcer around 5 cm in size) - Musculoskeletal Musculoskeletal: generalized weakness, significant weakness bilaterally 3/5 strenght b/l - Psychiatric Altered mental status improved Psychiatric: no appropriate affect, no intact judgment & insight - Labs CBC & Chem 7: 10/25/17 12:28 10/24/17 07:06 Labs: Microbiology - Last 24 Hours (Table) 10/25/17 10:30 Urine Culture - Final Urine,Voided Escherichia coli Assessment and Plan Plan: #1 acute abdominal pain likely secondary to constipation with colonic ileus. resolved Good output with enema . Diarrhea could be related to impaction. CT of the abdomen and pelvis negative. Patient is currently stable and tolerating diet. #2 change in mental status with possible underlying dementia/psychosis related to medication. resolved. Citalopram discontinued by psychiatry. They recommended no neudexta #3 history of iron deficiency anemia continue ferrous sulfate 325 twice a day. Iron studies ordered #4 history of paroxysmal atrial fibrillation continue Xarelto #5 history of COPD continue DuoNeb for shortness of breath as needed #6 DVT prophylaxis on Xarelto #7 history of gout continue allopurinol 300 twice a day #8 chronic pain. Patient requesting tramadol be resumed which will be done. #9 history of hypertension continue Norvasc and Imdur #10 GI prophylaxis continue sucralfate #11 generalized debility PT OT recommended subacute rehab as patient is to go to walk by herself #12 thrombocytosis likely secondary to iron deficiency anemia #13 hypokalemia status post potassium 40 mEq every 2 hours #14 hypoalbuminemia secondary to protein energy malnutrition, moderate. ensure initiated Discharge plan: [facility] on Saturday--delayed until Saturday
[2017-10-27] MEDS: RIVAROXABAN 20 MG TAB PO SCH (17:18)
[2017-10-27] MEDS: POLYETHYLENE GLYCOL 3350 17 GM POWD.PACK PO SCH (20:03)
[2017-10-27 21:43] VITALS: RESP 16
[2017-10-28] MEDS: IPRATROPIUM 0.5 MG/2.5 ML NEBU INHALATION SCH ×4 (07:40→20:19)
[2017-10-28] MEDS: ALLOPURINOL 300 MG TAB PO SCH ×2 (09:03→21:05)
[2017-10-28] MEDS: DOCUSATE 100 MG CAP PO SCH ×2 (09:03→21:07)
[2017-10-28] MEDS: PANTOPRAZOLE SODIUM 40 MG GRANULE PKT PO SCH (09:03)
[2017-10-28] MEDS: CEFUROXIME 250 MG TAB PO SCH ×2 (09:03→21:05)
[2017-10-28] MEDS: ETODOLAC 400 MG TAB PO SCH (09:05)
[2017-10-28] MEDS: ESTRADIOL 0.05 MG TRANSDERM SCH (09:05)
[2017-10-28] MEDS: FERROUS SULFATE 325 MG TAB PO SCH ×2 (09:06→16:27)
[2017-10-28] MEDS: ISOSORBIDE MONONITRATE ER 30 MG TAB.ER.24H PO SCH (09:06)
[2017-10-28] MEDS: FUROSEMIDE 20 MG TAB PO SCH (09:06)
[2017-10-28] MEDS: SUCRALFATE 1 GM TAB PO SCH ×2 (09:06→16:27)
[2017-10-28] MEDS: traMADol 50 MG TAB PO PRN ×2 (09:12→16:31)
[2017-10-28] MEDS: ACETAMINOPHEN TAB 500 MG TAB PO PRN ×2 (13:30→21:04)
[2017-10-28] MEDS: RIVAROXABAN 20 MG TAB PO SCH (16:27)
--- NOTE | 2017-10-28 16:47 | P.PN ---
Subjective 82 years old female with past medical history of atrial fibrillation, heart failure unknown, COPD, history of stroke, dementia, hyperlipidemia, iron deficiency anemia resents in yesterday after the patient was transferred from [facility] where patient was evaluated for abdominal pain and constipation. According to the daughter patient was doing well and was oriented 3 functionally very active 5 weeks ago when she had multiple episodes of diarrhea and was started on Questran. Patient developed acute psychosis from [facility] and was transferred to [facility] for acute psychosis. She was started on medication including neudexta, and citalopram. 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 Daughter on the other hand states that patient does not have any dementia or owning prior to this admission. She started having loose stools at [facility] and was transferred to [facility] but due to insurance issues was transferred to [facility]. Computed tomography scan obtained at [facility] did report moderate amount of stool noted in the rectum with perirectal inflammatory changes related to colitis but no sign of bowel obstruction. Abdominal x-ray done this morning suggested colonic ileus. Patient received 3 enema as in the ER with 3 stools. Patient is intermittently found to be confused. CT head ordered and was negative. She is moving all her extremities unlikely to be stroke. Patient is very weak according to the daughter is unable to come out of her bed but has. Need PT and OT evaluation while patient is here. CBC suggestive of hemoglobin 9.7, platelet 682 with MCV 77. No CMP ordered. 10/22 Patient is much oriented today. Patient had good bowel movement after she had an enema. Neurology evaluated the patient thought confusion might be related to her dehydration and the partial obstruction. Aricept initiated. Psychiatry recommendation pending. Labs drawn today suggestive of severe hypokalemia of 2.8. Glucose 70, calcium 7.7. Patient's albumin 1.9 nutrition consult placed for evaluation of malnutrition. Iron studies ordered for anemia and thrombocytopenia 10/23: Patient has been followed by neurology if EEG is normal she is cleared for discharge from neurology standpoint. EEG is considered within normal limits except EKG leads showed an irregular irregular rhythm with a normal rate. Patient has been seen by psychiatry and showed no signs of psychosis, depression. Her recent hospitalizations appeared to be a result of delirium which is clearing. Recommendations to discontinue Celexa. Diagnosis of cognitive disorder should not be made until the patient has been free of symptoms of delirium for a minimum of 4 months. Would recommend discontinuing Aricept as there is no diagnosis for neurocognitive disorder of the Alzheimer's type. Do not's start Nuedexta is no evidence of pseudo-bulbar affect. Psychiatry is signed off the case. Abdominal x-ray from October 22 showing difficult to exclude transverse colon mass. Partial obstruction versus ileus or enteritis. General surgery has ordered a CAT scan of the abdomen and pelvis with oral contrast only to be done today. Patient is more oriented today. She does have lower extremity edema for which IV fluids will be discontinued. Potassium has been replaced. Patient started on Lasix 20 mg daily. Discharge plan is to [facility] is likely on Saturday. 10/24: Patient felt that she slept okay last night and is feeling stronger today. CAT scan revealed suspicious area distal rectum/anus where there was prominent fecalith on prior study. Correlation with digital rectal exam and possible scope advised. Patient has continued to be followed by general surgery and there is no indication for any intervention at this time and patient is been cleared for discharge. Anticipate discharge to intermediate tomorrow. 10/25: Patient has no new complaints today except for arthritis pain since we took off all pain meds when she came in. We will resume only Tramadol and she will be started on cefuroxime for UTI. Culture report is pending. We'll plan to discharge today in stable condition to [facility] once insurance authorization has been obtained. By late afternoon, [facility] had not decided if they will accept the patient and authorization from the insurance company has not been initiated. Patient will be unable to be discharged and will be here over the weekend. 10/26: Patient with no complaints today. Significant weakness bilateral lower extremity with no improvement since yesterday. Tramadol and diclofenac initiated on patient's family requested. Family was upset about holding diclofenac in the hospital. Explained to the family the risk factor and side effects associated with continuous Detussin macules in the hospital including ulcers, kidney dysfunction. Patient is adamant to continue the diclofenac despite side effects as it is helpful for the knee pain. Awaiting authorization from the rehab 10/27. Patient examined bedside. Complains of weakness in the lower extremity. Was able to sit in the chair with assistance. Pain controlled on tramadol and baclofen. Family is unable to take patient home as patient lives alone. Awaiting authorization from the rehab. 10/28 patient was evaluated today, she was noted to be sitting up in the bedside chair eating breakfast. She reports she is doing well. She continues to have generalized weakness. Again family is unable to take patient home so we're waiting authorization for rehab. Currently [facility] denied her admission, waiting authorization on [facility] in [place]. Objective - Vital Signs Vital signs: Vital Signs Temp 98.4 F 10/28/17 14:38 Pulse 76 10/28/17 16:20 Resp 16 10/28/17 14:38 BP 122/68 10/28/17 14:38 Pulse Ox 97 10/28/17 14:38 Intake & Output 10/27/17 10/28/17 10/28/17 18:59 06:59 18:59 Intake Total 2640 Balance 2640 Weight 61.235 kg Intake: Oral 2640 Other: Voiding Method Diaper Diaper Diaper # Voids 1 4 3 - Exam General appearance: cooperative, no acute distress answering questions appropriately. Confusion resolved - EENT Eyes: EOMI, PERRLA, no photophobia, no ptosis ENT: hearing grossly normal, normal oropharynx, no pharyngeal erythema, no tonsillar exudates - Neck Neck: no lymphadenopathy, normal ROM Carotids: bilateral: upstroke normal - Respiratory Respiratory: bilateral: CTA, negative: diminished, dullness, rales, rhonchi, wheezing - Cardiovascular Rhythm: regular Heart sounds: normal: S1, S2 Abnormal Heart Sounds: no systolic murmur, no diastolic murmur ankle Peripheral Edema: absent: None dorsalis pedis Peripheral Pulses: bilateral: Normal - Gastrointestinal General gastrointestinal: no distended, normal bowel sounds, no organomegaly, soft, no tenderness - Integumentary Integumentary: no calor, no cyanotic, ulcer (right heel ulcer around 5 cm in size) - Musculoskeletal Musculoskeletal: generalized weakness, significant weakness bilaterally 3/5 strenght b/l - Psychiatric Altered mental status improved Psychiatric: no appropriate affect, no intact judgment & insight - Labs CBC & Chem 7: 10/25/17 12:28 10/24/17 07:06 Assessment and Plan Plan: #1 acute abdominal pain likely secondary to constipation with colonic ileus. resolved Good output with enema . Diarrhea could be related to impaction. CT of the abdomen and pelvis negative. Patient is currently stable and tolerating diet. #2 change in mental status with possible underlying dementia/psychosis related to medication. resolved. Citalopram discontinued by psychiatry. They recommended no neudexta #3 history of iron deficiency anemia continue ferrous sulfate 325 twice a day. Iron studies ordered #4 history of paroxysmal atrial fibrillation continue Xarelto #5 history of COPD continue DuoNeb for shortness of breath as needed #6 DVT prophylaxis on Xarelto #7 history of gout continue allopurinol 300 twice a day #8 chronic pain. continue tramadol #9 history of hypertension continue Norvasc and Imdur #10 GI prophylaxis continue sucralfate #11 generalized debility PT OT recommended subacute rehab as patient is to go to walk by herself #12 thrombocytosis likely secondary to iron deficiency anemia #13 hypokalemia status post potassium 40 mEq every 2 hours #14 hypoalbuminemia secondary to protein energy malnutrition, moderate. ensure initiated Discharge plan: [facility] --delayed until Saturday, awaiting insurance authorization The above impression and plan of care have been discussed and directed by signing physician. Shruti Khan nurse practitioner acting as scribe for signing physician.
[2017-10-28] MEDS: POLYETHYLENE GLYCOL 3350 17 GM POWD.PACK PO SCH (21:06)
[2017-10-29 07:33] VITALS: BP 102/58; TEMP 96.7
[2017-10-29] MEDS: DOCUSATE 100 MG CAP PO SCH (08:17)
[2017-10-29] MEDS: ALLOPURINOL 300 MG TAB PO SCH (08:17)
[2017-10-29] MEDS: CEFUROXIME 250 MG TAB PO SCH (08:17)
[2017-10-29] MEDS: FERROUS SULFATE 325 MG TAB PO SCH (08:17)
[2017-10-29] MEDS: PANTOPRAZOLE SODIUM 40 MG GRANULE PKT PO SCH (08:17)
[2017-10-29] MEDS: ETODOLAC 400 MG TAB PO SCH (08:18)
[2017-10-29] MEDS: FUROSEMIDE 20 MG TAB PO SCH (08:19)
[2017-10-29] MEDS: SUCRALFATE 1 GM TAB PO SCH (08:19)
[2017-10-29] MEDS: ISOSORBIDE MONONITRATE ER 30 MG TAB.ER.24H PO SCH (08:19)
[2017-10-29] MEDS: IPRATROPIUM 0.5 MG/2.5 ML NEBU INHALATION SCH ×2 (08:47→11:58)
[2017-10-29 12:08] VITALS: PULSE 80
--- NOTE | 2017-10-29 13:14 | P.DS ---
Providers Date of admission: 10/22/17 14:57 Attending physician: Colby Lopez Consults: 10/20/17 20:13 Consult Physician Routine Consulting Provider: Rafiq Martin Consult Reason/Comments: Mild perirectal inflammatory changes possible stercoral colitis Do you want consulting provider notified?: Yes 10/21/17 11:45 Consult Physician Routine Consulting Provider: Jonatan Rodriguez Consult Reason/Comments: confusion, dx of dementia? Do you want consulting provider notified?: Yes 10/21/17 17:01 Consult Physician Routine Consulting Provider: Kayla Mckeon Consult Reason/Comments: change in mental status on neudexta Do you want consulting provider notified?: Yes Primary care physician: [facility] Course: 82 years old female with past medical history of atrial fibrillation, heart failure unknown, COPD, history of stroke, dementia, hyperlipidemia, iron deficiency anemia resents in yesterday after the patient was transferred from [facility] where patient was evaluated for abdominal pain and constipation. According to the daughter patient was doing well and was oriented 3 functionally very active 5 weeks ago when she had multiple episodes of diarrhea and was started on Questran. Patient developed acute psychosis from [facility] and was transferred to [facility] for acute psychosis. She was started on medication including neudexta, and citalopram. 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 Daughter on the other hand states that patient does not have any dementia or owning prior to this admission. She started having loose stools at [facility] and was transferred to [facility] but due to insurance issues was transferred to [facility]. Computed tomography scan obtained at [facility] did report moderate amount of stool noted in the rectum with perirectal inflammatory changes related to colitis but no sign of bowel obstruction. Abdominal x-ray done this morning suggested colonic ileus. Patient received 3 enema as in the ER with 3 stools. Patient is intermittently found to be confused. CT head ordered and was negative. She is moving all her extremities unlikely to be stroke. Patient is very weak according to the daughter is unable to come out of her bed but has. Need PT and OT evaluation while patient is here. CBC suggestive of hemoglobin 9.7, platelet 682 with MCV 77. No CMP ordered. 10/22 Patient is much oriented today. Patient had good bowel movement after she had an enema. Neurology evaluated the patient thought confusion might be related to her dehydration and the partial obstruction. Aricept initiated. Psychiatry recommendation pending. Labs drawn today suggestive of severe hypokalemia of 2.8. Glucose 70, calcium 7.7. Patient's albumin 1.9 nutrition consult placed for evaluation of malnutrition. Iron studies ordered for anemia and thrombocytopenia 10/23: Patient has been followed by neurology if EEG is normal she is cleared for discharge from neurology standpoint. EEG is considered within normal limits except EKG leads showed an irregular irregular rhythm with a normal rate. Patient has been seen by psychiatry and showed no signs of psychosis, depression. Her recent hospitalizations appeared to be a result of delirium which is clearing. Recommendations to discontinue Celexa. Diagnosis of cognitive disorder should not be made until the patient has been free of symptoms of delirium for a minimum of 4 months. Would recommend discontinuing Aricept as there is no diagnosis for neurocognitive disorder of the Alzheimer's type. Do not's start Nuedexta is no evidence of pseudo-bulbar affect. Psychiatry is signed off the case. Abdominal x-ray from October 22 showing difficult to exclude transverse colon mass. Partial obstruction versus ileus or enteritis. General surgery has ordered a CAT scan of the abdomen and pelvis with oral contrast only to be done today. Patient is more oriented today. She does have lower extremity edema for which IV fluids will be discontinued. Potassium has been replaced. Patient started on Lasix 20 mg daily. Discharge plan is to [facility] is likely on Saturday. 10/24: Patient felt that she slept okay last night and is feeling stronger today. CAT scan revealed suspicious area distal rectum/anus where there was prominent fecalith on prior study. Correlation with digital rectal exam and possible scope advised. Patient has continued to be followed by general surgery and there is no indication for any intervention at this time and patient is been cleared for discharge. Anticipate discharge to [facility] tomorrow. 10/25: Patient has no new complaints today except for arthritis pain since we took off all pain meds when she came in. We will resume only Tramadol and she will be started on cefuroxime for UTI. Culture report is pending. We'll plan to discharge today in stable condition to [facility] once insurance authorization has been obtained. By late afternoon, [facility] had not decided if they will accept the patient and authorization from the insurance company has not been initiated. Patient will be unable to be discharged and will be here over the weekend. 10/26: Patient with no complaints today. Significant weakness bilateral lower extremity with no improvement since yesterday. Tramadol and diclofenac initiated on patient's family requested. Family was upset about holding diclofenac in the hospital. Explained to the family the risk factor and side effects associated with continuous Detussin macules in the hospital including ulcers, kidney dysfunction. Patient is adamant to continue the diclofenac despite side effects as it is helpful for the knee pain. Awaiting authorization from the rehab 10/27. Patient examined bedside. Complains of weakness in the lower extremity. Was able to sit in the chair with assistance. Pain controlled on tramadol and baclofen. Family is unable to take patient home as patient lives alone. Awaiting authorization from the rehab. 10/28 patient was evaluated today, she was noted to be sitting up in the bedside chair eating breakfast. She reports she is doing well. She continues to have generalized weakness. Again family is unable to take patient home so we're waiting authorization for rehab. Currently [facility] denied her admission, waiting authorization on [facility] in [place]. 10/29. No new complains, weak in her lower extrmeities but pain is better. Will be discharged to [facility] [place] Discharge diagnosis #1 acute abdominal pain likely secondary to constipation with colonic ileus. #2 change in mental status with possible underlying dementia/psychosis related to medication. resolved. #3 history of iron deficiency anemia #4 history of paroxysmal atrial fibrillation #5 history of COPD #6 history of gout #7 chronic pain. #8 history of hypertension #9 generalized debility #10 thrombocytosis likely secondary to iron deficiency anemia #11 hypokalemia #12 hypoalbuminemia secondary to protein energy malnutrition, moderate. Disposition - [facility] Patient Condition at Discharge: Good Plan - Discharge Summary New Discharge Prescriptions: New Docusate [Colace] 100 mg PO BID PRN cap PRN Reason: Constipation Polyethylene Glycol 3350 [Miralax] 17 gm PO HS powd.pack Cefuroxime [Ceftin] 250 mg PO BID #14 tablet traMADol HCL [Ultram] 50 mg PO TID #90 tab Continue Sucralfate [Carafate] 1 gm PO BID@0900,1700 Ferrous Sulfate [Iron] 325 mg PO BID@0900,1700 Isosorbide Mononitrate ER [Imdur] 30 mg PO DAILY@0900 Acetaminophen Tab [Tylenol] 500 mg PO Q6HR PRN PRN Reason: Pain Allopurinol [Zyloprim] 300 mg PO BID Rivaroxaban [Xarelto] 20 mg PO HS@1700 amLODIPine [Norvasc] 5 mg PO DAILY PRN PRN Reason: Blood Pressure - High Estradiol 0.05MG/24Hr Biwkptch [Vivelle-Dot 0.05 MG] 1 patch TRANSDERM Q84H Omeprazole 20 mg PO BID@0900,1700 Tiotropium 18 Mcg/Puff [Spiriva] 1 cap INHALATION RT-DAILY Discontinued Nuedexta 20-10mg 1 tab PO DIRECTED traMADol HCL [Ultram] 50 mg PO TID PRN PRN Reason: Pain Diclofenac Sodium [Diclofenac Sodium ER] 100 mg PO DAILY@1700 Citalopram Hydrobromide [CeleXA] 20 mg PO DIRECTED Meclizine [Antivert] 50 mg PO TID ALPRAZolam [Xanax] 0.5 mg PO DAILY ALPRAZolam [Xanax] 0.25 - 0.5 mg PO HS PRN PRN Reason: anxiety/sleep Discharge Medication List Acetaminophen Tab [Tylenol] 500 mg PO Q6HR PRN 10/20/17 [History] Allopurinol [Zyloprim] 300 mg PO BID 10/20/17 [History] Estradiol 0.05MG/24Hr Biwkptch [Vivelle-Dot 0.05 MG] 1 patch TRANSDERM Q84H [History] Ferrous Sulfate [Iron] 325 mg PO BID@0900,1700 10/20/17 [History] Isosorbide Mononitrate ER [Imdur] 30 mg PO DAILY@0900 10/20/17 [History] Omeprazole 20 mg PO BID@0900,1700 10/20/17 [History] Rivaroxaban [Xarelto] 20 mg PO HS@1700 10/20/17 [History] Sucralfate [Carafate] 1 gm PO BID@0900,1700 10/20/17 [History] Tiotropium 18 Mcg/Puff [Spiriva] 1 cap INHALATION RT-DAILY 10/20/17 [History] amLODIPine [Norvasc] 5 mg PO DAILY PRN 10/20/17 [History] Cefuroxime [Ceftin] 250 mg PO BID #14 tablet 10/25/17 [Rx] Docusate [Colace] 100 mg PO BID PRN cap 10/25/17 [Rx] Polyethylene Glycol 3350 [Miralax] 17 gm PO HS powd.pack 10/25/17 [Rx] traMADol HCL [Ultram] 50 mg PO TID #90 tab 10/25/17 [Rx] Follow up Appointment(s)/Referral(s): Ruel Campa DO [Primary Care Provider] - 1 Week (after discharge from [facility]) Discharge Disposition: TRANSFER TO SNF/ECF
== END 2017-10-29 15:05 | DRG 388 ==
LOC: EC 16:45 → 5MS5E 20:18 → OBSVTOIN 10-22 14:57
PROVIDERS: ADMIT Internal Medicine; ATTEND Internal Medicine
DX: K56.7 Ileus, unspecified (principal); G93.41 Metabolic encephalopathy; E44.0 Moderate protein-calorie malnutrition; I48.0 Paroxysmal atrial fibrillation; I11.0 Hypertensive heart disease with heart failure; I50.9 Heart failure, unspecified; D50.9 Iron deficiency anemia, unspecified; R15.9 Full incontinence of feces; D47.3 Essential (hemorrhagic) thrombocythemia; N39.0 Urinary tract infection, site not specified; F23 Brief psychotic disorder; E78.5 Hyperlipidemia, unspecified; E86.0 Dehydration; E87.6 Hypokalemia; F32.9 Major depressive disorder, single episode, unspecified; J44.9 Chronic obstructive pulmonary disease, unspecified; M10.9 Gout, unspecified; G89.29 Other chronic pain; R53.1 Weakness; I25.10 Atherosclerotic heart disease of native coronary artery without angina pectoris; M19.90 Unspecified osteoarthritis, unspecified site; R41.0 Disorientation, unspecified; K44.9 Diaphragmatic hernia without obstruction or gangrene; R32 Unspecified urinary incontinence; K52.9 Noninfective gastroenteritis and colitis, unspecified; R53.81 Other malaise; I73.9 Peripheral vascular disease, unspecified; T46.6X5A Adverse effect of antihyperlipidemic and antiarteriosclerotic drugs, initial encounter; Z88.6 Allergy status to analgesic agent; Z88.2 Allergy status to sulfonamides; Z88.8 Allergy status to other drugs, medicaments and biological substances; Z87.891 Personal history of nicotine dependence; Z79.899 Other long term (current) drug therapy; Z79.01 Long term (current) use of anticoagulants; Z90.49 Acquired absence of other specified parts of digestive tract; Z90.89 Acquired absence of other organs; Z90.710 Acquired absence of both cervix and uterus; Z86.79 Personal history of other diseases of the circulatory system; Z86.73 Personal history of transient ischemic attack (TIA), and cerebral infarction without residual deficits; Z87.19 Personal history of other diseases of the digestive system
CPT/HCPCS: 70450; 74018; 74019; 74176; 80053; 81001; 82728; 83540; 83550; 84132; 85025; 85027; 87077; 87086; 87186; 87324; 93005; 94640; 95819; 96360; 99285